=== PATIENT | female | born 1955 | race Caucasian/White ===

== ENCOUNTER 2016-07-18 08:43 | Inpatient (IN) | payer MEDICARE, OTHER ==
--- NOTE | 2016-07-18 08:56 | ED ---
General Adult HPI - General Chief complaint: Neuro Symptoms/Deficit Stated complaint: POSS CVA Time Seen by Provider: 07/18/16 08:55 Source: family, EMS, RN notes reviewed, old records reviewed Mode of arrival: EMS Limitations: language barrier, physical limitation - History of Present Illness Initial comments: This is a 60-year-old female the ER for reevaluation. The patient is coming in for evaluation of possible strokelike symptoms. and aphasia and facial drooping. Patient states symptoms began last night and progressed with shoe over progress when she woke up this morning. Patient does have a complex history with CVAs, most relating to speech and swallowing. The have gotten mostly better but this symptoms seem to be along the same lines. Patient unsure of her neurologist is, does take daily aspirin. No recent trauma, mild headache. Patient denies weakness of her hands or legs - Related Data Home Medications Medication Instructions Recorded Confirmed ARIPiprazole [Abilify] 2 mg PO HS 12/13/15 04/19/16 Ergocalciferol [Vitamin D2 50,000 unit PO TH 12/13/15 04/19/16 (RICKY)] FLUoxetine HCL [PROzac] 60 mg PO DAILY 12/13/15 04/19/16 Insulin Glargine [Lantus] 32 unit SQ HS 12/13/15 04/19/16 LORazepam [Ativan] 0.5 - 1 mg PO BID PRN 12/13/15 04/19/16 Omeprazole [PriLOSEC] 20 mg PO AC-BRKFST 12/13/15 04/19/16 Primidone [Mysoline] 50 mg PO TID 12/13/15 04/19/16 lamoTRIgine [LaMICtal] 150 mg PO BID 12/13/15 04/19/16 metFORMIN HCL [Glucophage] 850 mg PO BID 12/13/15 04/19/16 Previous Rx's Medication Instructions Recorded Atorvastatin [Lipitor] 80 mg PO DAILY #30 tab 12/17/15 Aspirin EC [Ecotrin Low Dose] 81 mg PO DAILY #30 tablet 04/22/16 Clopidogrel [Plavix] 75 mg PO DAILY #30 tab 04/22/16 Ezetimibe [Zetia] 10 mg PO DAILY #30 tab 04/22/16 Allergies Allergy/AdvReac Type Severity Reaction Status Date / Time No Known Allergies Allergy Verified 07/18/16 08:49 Review of Systems ROS Statement: Those systems with pertinent positive or pertinent negative responses have been documented in the HPI. ROS Other: All systems not noted in ROS Statement are negative. Past Medical History Past Medical History: Chest Pain / Angina, CVA/TIA, Diabetes Mellitus, Hyperlipidemia, Hypertension History of Any Multi-Drug Resistant Organisms: None Reported Past Surgical History: Adenoidectomy, Cholecystectomy, Tonsillectomy Additional Past Surgical History / Comment(s): hydrochephalus shunt, neck Past Anesthesia/Blood Transfusion Reactions: No Reported Reaction Past Psychological History: No Psychological Hx Reported Smoking Status: Current every day smoker Past Alcohol Use History: Occasional Past Drug Use History: None Reported - Past Family History Mother Family Medical History: Diabetes Mellitus, Myocardial Infarction ([place]) Father Family Medical History: Liver Disease, Myocardial Infarction ([place]) General Exam - General Exam Comments Initial Comments: NIH of 3 Limitations: language barrier, physical limitation Course Vital Signs 07/18/16 07/18/16 08:44 09:00 Temperature 97.6 F Pulse Rate 72 75 Respiratory 20 20 Rate Blood Pressure 124/71 123/67 O2 Sat by Pulse 92 L 98 Oximetry - Reevaluation(s) Reevaluation #1: 07/18/16 09:46 Patient is not a TPA candidate due to onset of symptoms being greater than 4 hours, EKG Findings - EKG Comments: EKG Findings:: KG shows normal sinus rhythm rate of 69, IL 158, QRS 64, QTc 435 Medical Decision Making - Medical Decision Making 60 female here for evaluation. Patient become presented here for evaluation of CVA, patient is having positive seat CVA with dysphasia and dysphagia, patient will be admitted for neurological evaluation - Lab Data Result diagrams: 07/18/16 09:00 07/18/16 09:00 Lab Results 07/18/16 07/18/16 07/18/16 Range/Units 09:00 09:00 09:00 WBC 6.3 (3.8-10.6) k/uL RBC 5.23 (3.80-5.40) m/uL Hgb 16.0 (11.4-16.0) gm/dL Hct 49.0 H (34.0-46.0) % MCV 93.7 (80.0-100.0) fL MCH 30.6 (25.0-35.0) pg MCHC 32.6 (31.0-37.0) g/dL RDW 14.2 (11.5-15.5) % Plt Count 217 (150-450) k/uL Neutrophils % 50 % Lymphocytes % 38 % Monocytes % 7 % Eosinophils % 2 % Basophils % 1 % Neutrophils # 3.2 (1.3-7.7) k/uL Lymphocytes # 2.4 (1.0-4.8) k/uL Monocytes # 0.4 (0-1.0) k/uL Eosinophils # 0.1 (0-0.7) k/uL Basophils # 0.1 (0-0.2) k/uL PT 10.7 (9.0-12.0) sec INR 1.1 (<1.1) APTT 22.5 (22.0-30.0) sec Sodium 138 (137-145) mmol/L Potassium 4.4 (3.5-5.1) mmol/L Chloride 101 (98-107) mmol/L Carbon Dioxide 26 (22-30) mmol/L Anion Gap 11 mmol/L BUN 15 (7-17) mg/dL Creatinine 0.84 (0.52-1.04) mg/dL Est GFR (MDRD) Af Amer >60 (>60 ml/min/1.73 sqM) Est GFR (MDRD) Non-Af >60 (>60 ml/min/1.73 sqM) Glucose 393 H (74-99) mg/dL Calcium 9.5 (8.4-10.2) mg/dL Phosphorus 4.1 (2.5-4.5) mg/dL Magnesium 1.6 (1.6-2.3) mg/dL Total Bilirubin 0.9 (0.2-1.3) mg/dL AST 16 (14-36) U/L ALT 51 (9-52) U/L Alkaline Phosphatase 110 (38-126) U/L Total Protein 6.5 (6.3-8.2) g/dL Albumin 3.8 (3.5-5.0) g/dL - Radiology Data Radiology results: report reviewed (CT brain negative for acute disease), image reviewed Disposition Clinical Impression: Cerebrovascular accident, Expressive aphasia, Dysphagia Disposition: ADMITTED IP TO THIS [facility] Condition: Fair Referrals: Laming,Lena, MD [Primary Care Provider] - 1-2 days
[2016-07-18 09:23] LABS: Basophils # (A) 0.1 k/uL (0-0.2); Basophils % (A) 1 %; CH 31.4; CHCM 33.7; Eosinophils # (A) 0.1 k/uL (0-0.7); Eosinophils % (A) 2 %; HDW 2.55; Luc # (Auto) 0.11; Luc % (Auto) 2; Lymphocytes # (A) 2.4 k/uL (1.0-4.8); Lymphocytes % (A) 38 %; MCH 30.6 pg (25.0-35.0); MCHC 32.6 g/dL (31.0-37.0); MCV 93.7 fL (80.0-100.0); Mean Platelet Volume 8.5; Monocytes # (A) 0.4 k/uL (0-1.0); Monocytes % (A) 7 %; Neutrophils # (A) 3.2 k/uL (1.3-7.7); Neutrophils % (A) 50 %; RBC 5.23 m/uL (3.80-5.40); RDW 14.2 % (11.5-15.5); WBC 6.3 k/uL (3.8-10.6); WBC (Perox) 6.11
--- NOTE | 2016-07-18 09:29 | CT ---
EXAMINATION TYPE: CT brain wo con DATE OF EXAM: 07/18/2016 9:17 AM COMPARISON: Prior CT brain April HISTORY: Weakness and slurred speech. CT DLP: 978.20 mGycm Automated exposure control for dose reduction was used. FINDINGS: No significant interval change. There is no hemorrhage or hydrocephalus. Atheromatous changes present within the internal carotid arteries. Ventriculoperitoneal shunt tubing is stable. Periventricular w jaswant matter demyelination changes are again noted. Craniotomy present as on prior exam for the shunt tubing. Mild inflammatory change present in the ethmoid air cells, sphenoid, maxillary sinus. Foreign body noted surface of the right orbit as on prior exam. IMPRESSION: No acute intracranial hemorrhage, mass effect, or midline shift is seen. Additional findings above.
[2016-07-18 09:32] LABS: INR 1.1 (<1.1); Partial Thromboplastin Time 22.5 sec (22.0-30.0); Prothrombin Time 10.7 sec (9.0-12.0)
[2016-07-18 09:40] LABS: ALT 51 U/L (9-52); AST 16 U/L (14-36); Alkaline Phosphatase 110 U/L (38-126); Anion Gap 11 mmol/L; Blood Urea Nitrogen 15 mg/dL (7-17); Calcium 9.5 mg/dL (8.4-10.2); Carbon Dioxide 26 mmol/L (22-30); Chloride 101 mmol/L (98-107); Glucose 393 mg/dL (74-99); Magnesium 1.6 mg/dL (1.6-2.3); Non-African American GFR(MDRD) >60 (>60 ml/min/1.73 sqM); Phosphorous 4.1 mg/dL (2.5-4.5); Potassium 4.4 mmol/L (3.5-5.1); Sodium 138 mmol/L (137-145); Total Bilirubin 0.9 mg/dL (0.2-1.3); Total Protein 6.5 g/dL (6.3-8.2)
[2016-07-18] MEDS ORDERED: MORPHINE SULFATE 4 MG/ML SYRINGE IVP STA (09:45)
[2016-07-18 09:46] LABS: Creatine Kinase 33 U/L (30-135)
[2016-07-18] MEDS ORDERED: ASPIRIN 325 MG TAB PO STA (09:47)
[2016-07-18] MEDS ORDERED: SODIUM CHLORIDE 0.9% 1,000 ML IV STA (09:49)
[2016-07-18] MEDS ORDERED: SODIUM CHLORIDE 0.9% 500 ML IV STA (09:49)
[2016-07-18] MEDS ORDERED: INSULIN REGULAR 100 UNIT/ML VIAL IV ONE (09:49)
[2016-07-18] MEDS ORDERED: INSULIN REGULAR 100 UNIT/ML VIAL SQ ONE (09:49)
[2016-07-18 09:59] LABS: Creatine Kinase MB 0.4 ng/mL (0.0-2.4); Troponin I <0.012 ng/mL (0.000-0.034)
[2016-07-18] MEDS ORDERED: ASPIRIN 300 MG SUPP RECTAL STA (10:31)
[2016-07-18 15:04] LABS: Glucose,Whole Blood 346 mg/dL (75-99)
[2016-07-18] MEDS ORDERED: Magnesium Replacement Protocol 1 EACH MISC MISCELLANE PRN ×2 (15:52→17:57)
[2016-07-18] MEDS ORDERED: Potassium Replacement Protocol 1 EACH MISC MISCELLANE PRN (15:52)
[2016-07-18] MEDS ORDERED: ONDANSETRON 4 MG/2 ML VIAL IVP PRN (15:53)
--- NOTE | 2016-07-18 16:01 | P.HPIM ---
History of Present Illness H&P Date: 07/18/16 Chief Complaint: Slurred speech This is a 60-year-old female with past medical history noted below significant for history of BUSINESS MAIL ENTRY CLERK shunt placement in 2004, prior CVA with residual left-sided weakness, and bipolar disorder who presented to the emergency room brought by EMS for difficulty with her speech and her being unable to articulate words. Patient is a very poor historian and most of the history was obtained by her daughter at the bedside. Her daughter said that she called her this morning on the phone and patient was unable to respond promptly and her speech appeared garbled. Her daughter called her to go check on her and he called EMS and brought her to the emergency room. Patient said that her symptoms started yesterday but she did not seek medical attention. She denies any headache or visual change. She was not very cooperative with my exam. Her neurologic exam appeared normal involving cranial nerve, 55 out of 5 strength on the right side 3-4 out of 5 strength on the left throughout. Patient is known to have left- sided weakness which is chronic for several years. Computed tomography scan of the brain in the emergency room showed no acute intracranial findings. Patient was admitted for the same in April and underwent a extensive workup that was unremarkable. She was unable to get an MRI as her BUSINESS MAIL ENTRY CLERK shunt information is not available. Review of Systems Review of system: 14 points review of systems were obtained and were negative except to what were mentioned in the HPI. Past Medical History Past Medical History: Chest Pain / Angina, CVA/TIA, Diabetes Mellitus, GERD/ Reflux, Hyperlipidemia, Hypertension Additional Past Medical History / Comment(s): CVA's x 2 with speech/swallow difficulties and R sided weakness, IDDM type II, hydrocephalus and had shunt placed 1999 at [place] in [facility]. History of Any Multi-Drug Resistant Organisms: None Reported Past Surgical History: Adenoidectomy, Cholecystectomy, Tonsillectomy Additional Past Surgical History / Comment(s): 1999 hydrochephalus shunt, cervical surgery. Past Anesthesia/Blood Transfusion Reactions: No Reported Reaction Past Psychological History: Anxiety, Bipolar, Depression Additional Psychological History / Comment(s): Pt resides alone. She uses a cane to ambulate. She manages her own medication. She no longer drives, eusebio or friend take her to appts. She had [facility] at discharge last admission-they are done seeing her. Smoking Status: Current every day smoker Past Alcohol Use History: Occasional Additional Past Alcohol Use History / Comment(s): Pt started smoking at age 20 or 21yrs. Past Drug Use History: None Reported - Past Family History Mother Family Medical History: Diabetes Mellitus, Myocardial Infarction ([place]) Father Family Medical History: Liver Disease, Myocardial Infarction ([place]) Medications and Allergies Home Medications Medication Instructions Recorded Confirmed Type ARIPiprazole [Abilify] 2 mg PO HS 12/13/15 07/18/16 History Ergocalciferol [Vitamin D2 50,000 unit PO TH 12/13/15 07/18/16 History (DRISDOL)] FLUoxetine HCL [PROzac] 60 mg PO DAILY 12/13/15 07/18/16 History Insulin Glargine [Lantus] 35 unit SQ HS 12/13/15 07/18/16 History LORazepam [Ativan] 0.5 - 1 mg PO BID PRN 12/13/15 07/18/16 History Omeprazole [PriLOSEC] 20 mg PO AC-BRKFST 12/13/15 07/18/16 History Primidone [Mysoline] 50 mg PO TID 12/13/15 07/18/16 History lamoTRIgine [LaMICtal] 150 mg PO BID 12/13/15 07/18/16 History metFORMIN HCL [Glucophage] 850 mg PO BID 12/13/15 07/18/16 History Aspirin 325 mg PO DAILY 07/18/16 07/18/16 History Atenolol 25 mg PO QAM 07/18/16 07/18/16 History Lisinopril-Hctz 20-12.5 mg 1 tab PO DAILY 07/18/16 07/18/16 History [Zestoretic 20-12.5] Allergies Allergy/AdvReac Type Severity Reaction Status Date / Time No Known Allergies Allergy Verified 07/18/16 08:49 Physical Exam Vitals: Vital Signs Pulse BP Pulse Ox 07/18/16 13:02 66 101/61 93 L 07/18/16 12:32 68 110/57 93 L 07/18/16 12:00 66 107/56 07/18/16 11:30 68 107/58 95 07/18/16 11:00 70 103/67 96 07/18/16 10:30 71 119/60 93 L 07/18/16 10:00 68 111/76 92 L General: The patient is awake and alert, in no distress Eye: there is normal conjunctiva bilaterally. Neck: The neck is supple, there is no JVD. Cardiovascular: Normal S1-S2, no S3-S4, no murmurs. Respiratory: Lungs clear to auscultation bilaterally Gastrointestinal: Abdomen is soft, nontender Musculoskeletal: There is no pedal edema. Neurological:. As noted in HPI Skin: Skin is warm and dry Results CBC & Chem 7: 07/18/16 09:00 07/18/16 09:00 Thrombosis Risk Factor Assmnt - Choose All That Apply Any of the Below Risk Factors Present?: Yes Each Factor Represents 1 point: Obesity (BMI >25) Other Risk Factors: No Other congenital or acquired thrombophilia - If yes, enter type in comment: No Each Risk Factor Represents 5 Points: Stroke (< 1 month) Thrombosis Risk Factor Assessment Total Risk Factor Score: 6 Thrombosis Risk Factor Assessment Level: High Risk Assessment and Plan Plan: 1. Slurred speech: Exact etiology unclear. May be psychogenic? Computed tomography scan of the brain showed no acute intracranial findings. Patient had the carotid Doppler and echocardiogram in December 2015 with in normal range. Patient will be admitted to telemetry floor. Neurology consulted. She is on dual antiplatelet therapy chronically at home with questionable compliance 2. History of hydrocephalus status post BUSINESS MAIL ENTRY CLERK shunt placement in year 1999 3. Type 2 diabetes mellitus: Not well controlled, suspect noncompliance. I would check A1c 4. Mixed hyperlipidemia I would check fasting lipid profile 5. Tobacco abuse 6. DVT prophylaxis
[2016-07-18] MEDS: SODIUM CHLORIDE 0.9% 1,000 ML IV SCH ×2 (16:07→20:42)
[2016-07-18 16:18] LABS: Cholesterol 311 mg/dL (<200); HDL Cholesterol 39 mg/dL (40-60); Triglycerides 380 mg/dL (<150)
[2016-07-18 16:45] LABS: Glucose,Whole Blood 166 mg/dL (75-99)
[2016-07-18] MEDS: INSULIN LISPRO (humaLOG) 300 UNIT/3 ML VIAL SQ SCH ×2 (17:23→20:54)
[2016-07-18] MEDS: PRIMIDONE 50 MG TAB PO SCH ×2 (17:23→19:41)
[2016-07-18 17:27] LABS: Appearance,Urine Clear (Clear); Bilirubin,Urine Negative (Negative); Glucose,Urine (UA) 4+ (Negative); Ketones,Urine Trace (Negative); Leukocyte Esterase,Urine Negative (Negative); Nitrite,Urine Negative (Negative); Protein,Urine Negative (Negative); Specific Gravity,Urine 1.026 (1.001-1.035); UA Billing (MACRO vs. MICRO) CHEM; Urobilinogen,Urine <2.0 mg/dL (<2.0)
[2016-07-18] MEDS: KETOROLAC 30 MG/ML 1 ML VIAL IVP PRN (18:07)
[2016-07-18] MEDS: MAGNESIUM SULFATE-D5W PMX 1 GM in DEXTROSE/WATER 1 100ML.BAG IVPB SCH ×2 (18:31→20:40)
[2016-07-18 18:32] LABS: Hemoglobin A1C 11.2 % (4.2-6.1)
[2016-07-18] MEDS: ARIPiprazole 2 MG TAB PO SCH (19:40)
[2016-07-18] MEDS: INSULIN GLARGINE 100 UNIT/ML 10 ML VIAL SQ SCH (19:40)
[2016-07-18] MEDS: lamoTRIgine 100 MG TAB PO SCH (19:40)
[2016-07-18] MEDS: metFORMIN 850 MG TAB PO SCH (19:41)
[2016-07-18] MEDS: HEPARIN SODIUM,PORCINE 5,000 UNIT/ML 1 ML VIAL SQ SCH (20:54)
[2016-07-18 20:55] LABS: Glucose,Whole Blood 155 mg/dL (75-99)
[2016-07-18] MEDS: ASPIRIN 300 MG SUPP RECTAL SCH (20:55)
[2016-07-18] MEDS ORDERED: FAMOTIDINE 20 MG/2 ML VIAL IV SCH (21:00)
[2016-07-18 21:07] LABS: Cholesterol 263 mg/dL (<200); HDL Cholesterol 36 mg/dL (40-60); Triglycerides 297 mg/dL (<150)
--- NOTE | 2016-07-18 22:57 | CONS ---
DATE OF CONSULTATION: 07/18/2016 CHIEF COMPLAINT: Stroke. HISTORY OF PRESENT ILLNESS: The patient is a pleasant 60-year-old, female who is being evaluated by the neurology service per the request of Dr. Israel for the above-mentioned complaints. The patient was brought into [facility] emergency room early this morning with complaints of slurred speech and swallowing difficulties. His symptoms began yesterday evening, but the patient did not seek any medical attention. Other than slurred speech, the family noticed some facial drooping on the left side. The patient reports having choking spells whenever she tried to drink water. The patient does have previous history of strokes according to the family and does take Plavix daily at home. A bedside swallow evaluation was done in the emergency room and the patient did fail this. She is currently n.p.o. and speech therapy has been consulted. The patient also has history of hydrocephalus and has a MANAGER OF SOFTWARE DEVELOPMENT shunt which was placed in 1999. A CT scan of the brain was done on this admission, which showed small vessel ischemic changes along with craniotomy changes. A MANAGER OF SOFTWARE DEVELOPMENT shunt was visualized. No hydrocephalus was seen. Her CBC, INR and cardiac enzymes were normal. Her comprehensive metabolic profile was normal except for significant hyperglycemia at 393. At the time of my evaluation, the patient is lying in her bed and appears to be in no acute distress. She is still having significant dysarthria and has a mild left facial droop. She denies any lateralizing numbness or weakness in her extremities. She is complaining of a mild headache that she rates at 4/10 in intensity. She denies any recent trauma. She has been complaining of some tremors in the upper extremities. According to the family, this started several months ago and she has not been worked up for this. PAST MEDICAL HISTORY: Hydrocephalus, history of strokes and transient ischemic attacks, angina, diabetes, gastroesophageal reflux disease, hypertension, dyslipidemia, history of adenoidectomy, cholecystectomy, tonsillectomy. The patient also has history of bipolar disorder, depression, and anxiety disorder. SOCIAL HISTORY: The patient is a current every day smoker. She occasionally drinks alcohol. She denies any drug use. FAMILY HISTORY: Positive for diabetes, heart disease, liver disease. HOME MEDICATIONS: Reviewed in the chart. ALLERGIES: No known drug allergies. REVIEW OF SYSTEMS: CONSTITUTIONAL: Negative. EYES: Negative. ENT: Negative. CARDIOVASCULAR: Negative. RESPIRATORY: Negative. NEUROLOGICAL: As mentioned above. GASTROINTESTINAL: Positive for occasional heartburn. GENITOURINARY: Negative. PSYCHIATRIC: As mentioned above. MUSCULOSKELETAL: Positive for occasional joint pain. ENDOCRINE: Positive for diabetes. Dermatological: Negative. PHYSICAL EXAM: Vital signs show a temperature of 97.6, pulse 68, respirations 18, blood pressure 111/76. GENERAL APPEARANCE: The patient is a well-developed female who appears to be older than her stated age. HEENT: Normocephalic, atraumatic, mild left facial droop is noticed. Extraocular muscle testing showed a significant reduction in upward gaze. Neck is supple with no masses felt. CARDIOVASCULAR: Regular rate and rhythm. ABDOMEN: Nontender, nondistended. EXTREMITIES: No edema or clubbing. NEUROLOGICAL EXAM: The patient is alert, aware, and oriented x3. Speech is dysarthric. Language testing is normal. Strength is 5-/5 in all 4 extremities. Sensory exam was normal to light touch in all 4 extremities. Mild cogwheel rigidity is noticed in bilateral upper extremities. Occasional resting tremor is noticed in the right upper extremity. Kbavxy-ywtz-kzohul testing showed no dysmetria. Cranial nerve testing showed an upward gaze palsy and to a mild left facial droop. No seizure-like activity is seen. IMPRESSION: 1. Acute ischemic stroke. 2. Dysarthria. 3. Dysphagia. 4. Cogwheel rigidity. 5. History of hydrocephalus with MANAGER OF SOFTWARE DEVELOPMENT shunt placement. 6. Uncontrolled diabetes. RECOMMENDATIONS: The patient does appear to have suffered an acute ischemic stroke likely affecting the right middle cerebral artery distribution. Posterior circulation stroke also within the differential given her dysarthria and dysphagia. Speech therapy has been consulted and I do recommend a barium swallow study. For now, I will start her on rectal aspirin 300 mg daily. I will order an MRI of the brain. I will also order an MRI of the neck to check for any structural abnormalities that could be causing her symptoms. Continue IV hydration as tolerated. I will order a fasting lipid panel, serum homocysteine level and EEG. As for her resting tremors, cogwheel rigidity, and upward gaze palsy, the patient will need further outpatient work-up for possible parkinsonism. She will be seen in the clinic after her discharge and a SPECT scan will be ordered at that time. Continue neuro checks. The patient was counseled on tobacco cessation. Continue heparin for DVT prophylaxis and Protonix for GI prophylaxis. I will continue to follow with you. Further recommendations to follow. Thank you for allowing me to participate in the care of your patient. If you have any questions, please free to contact me.
[2016-07-19] MEDS: PANTOPRAZOLE 40 MG TABLET PO SCH (03:16)
[2016-07-19] MEDS: SODIUM CHLORIDE 0.9% 1,000 ML IV SCH ×2 (04:54→16:09)
[2016-07-19 06:10] LABS: Glucose,Whole Blood 229 mg/dL (75-99)
[2016-07-19] MEDS: INSULIN LISPRO (humaLOG) 300 UNIT/3 ML VIAL SQ SCH ×6 (06:29→21:18)
[2016-07-19 06:46] LABS: Basophils % (A) 1 %; CH 30.9; CHCM 32.4; Eosinophils # (A) 0.1 k/uL (0-0.7); Eosinophils % (A) 2 %; HDW 2.46; HGB 14.2 gm/dL (11.4-16.0); Luc # (Auto) 0.13; Luc % (Auto) 2; Lymphocytes % (A) 29 %; MCH 30.9 pg (25.0-35.0); MCHC 32.3 g/dL (31.0-37.0); MCV 95.8 fL (80.0-100.0); Mean Platelet Volume 7.8; Monocytes # (A) 0.3 k/uL (0-1.0); Monocytes % (A) 5 %; Neutrophils # (A) 4.4 k/uL (1.3-7.7); Neutrophils % (A) 63 %; RBC 4.59 m/uL (3.80-5.40); RDW 13.9 % (11.5-15.5); WBC (Perox) 7.58
[2016-07-19 07:10] LABS: ALT 45 U/L (9-52); AST 18 U/L (14-36); Alkaline Phosphatase 93 U/L (38-126); Anion Gap 6 mmol/L; Blood Urea Nitrogen 19 mg/dL (7-17); Calcium 8.4 mg/dL (8.4-10.2); Carbon Dioxide 25 mmol/L (22-30); Chloride 107 mmol/L (98-107); Glucose 238 mg/dL (74-99); Non-African American GFR(MDRD) >60 (>60 ml/min/1.73 sqM); Potassium 4.2 mmol/L (3.5-5.1); Sodium 138 mmol/L (137-145); Total Bilirubin 0.8 mg/dL (0.2-1.3); Total Protein 5.2 g/dL (6.3-8.2)
[2016-07-19] MEDS: ATENOLOL 25 MG TAB PO SCH (08:18)
[2016-07-19] MEDS: CLOPIDOGREL 75 MG TAB PO SCH (08:18)
[2016-07-19] MEDS: PRIMIDONE 50 MG TAB PO SCH ×3 (08:18→21:20)
[2016-07-19] MEDS: FLUoxetine HCL 20 MG CAP PO SCH (08:18)
[2016-07-19] MEDS: metFORMIN 850 MG TAB PO SCH (08:18)
[2016-07-19] MEDS: LISINOPRIL-HCTZ 20-12.5 MG 1 EACH TAB PO SCH (08:18)
[2016-07-19] MEDS: lamoTRIgine 100 MG TAB PO SCH ×2 (08:18→21:20)
[2016-07-19] MEDS: ATORVASTATIN 80 MG TAB PO SCH (08:18)
[2016-07-19] MEDS ORDERED: PNEUMOCOCCAL VACC-PNEUMOVAX 23 25 MCG/0.5 ML VIAL IM ONE (09:00)
[2016-07-19] MEDS ORDERED: INFLUENZA VACCINE (3YR+) 60 MCG/0.5 ML SYRINGE IM ONE (09:00)
[2016-07-19] MEDS ORDERED: ASPIRIN 325 MG TAB PO SCH ×2 (09:00)
[2016-07-19] MEDS: ASPIRIN 300 MG SUPP RECTAL SCH (10:19)
[2016-07-19] MEDS: HEPARIN SODIUM,PORCINE 5,000 UNIT/ML 1 ML VIAL SQ SCH ×2 (10:19→21:20)
[2016-07-19] MEDS: KETOROLAC 30 MG/ML 1 ML VIAL IVP PRN (10:56)
[2016-07-19] MEDS ORDERED: INSULIN GLARGINE 100 UNIT/ML 10 ML VIAL SQ STA (11:28)
[2016-07-19 11:57] LABS: Glucose,Whole Blood 193 mg/dL (75-99)
[2016-07-19] MEDS ORDERED: INSULIN LISPRO (humaLOG) 300 UNIT/3 ML VIAL SQ SCH (12:30)
--- NOTE | 2016-07-19 12:55 | P.PN ---
Subjective Her speech has improved today patient failed a bedside swallow evaluation this morning. She seems to be more alert and her speech is more clear to me today. Objective - Vital Signs Vital signs: Vital Signs Temp 99.3 F 07/19/16 07:36 Pulse 76 07/19/16 08:00 Resp 18 07/19/16 08:00 BP 124/66 07/19/16 07:36 Pulse Ox 95 07/19/16 07:36 Intake & Output 07/18/16 07/19/16 07/19/16 18:59 06:59 18:59 Intake Total 50 1800 0 Output Total 300 Balance 50 1500 0 Weight 80.6 kg Intake: IV 1800 Magnesium Sulfate-D5w Pmx 200 1 gm In Dextrose/Water 1 100ml.bag @ 100 mls/hr IVPB Q1H ZACKERY Rx#: [id number] Sodium Chloride 0.9% 1, 1600 000 ml @ 100 mls/hr IV . Q10H ZACKERY Rx#:[id number] Intake, IV Titration 50 Amount Sodium Chloride 0.9% 1, 50 000 ml @ 100 mls/hr IV . Q10H ZACKERY Rx#:[id number] Oral 0 Output: Urine 300 Other: Voiding Method Bedside Commode - Exam General: The patient is awake and alert, in no distress Eye: there is normal conjunctiva bilaterally. Neck: The neck is supple, there is no JVD. Cardiovascular: Normal S1-S2, no S3-S4, no murmurs. Respiratory: Lungs clear to auscultation bilaterally Gastrointestinal: Abdomen is soft, nontender Musculoskeletal: There is no pedal edema. Skin: Skin is warm and dry - Labs CBC & Chem 7: 07/19/16 06:16 07/19/16 06:16 Labs: Abnormal Lab Results - Last 24 Hours (Table) 07/18/16 07/18/16 07/18/16 Range/Units 16:43 17:10 20:44 BUN (7-17) mg/dL Glucose (74-99) mg/dL POC Glucose (mg/dL) 166 H (75-99) mg/dL Total Protein (6.3-8.2) g/dL Albumin (3.5-5.0) g/dL Triglycerides 297 H (<150) mg/dL Cholesterol 263 H (<200) mg/dL LDL Cholesterol, Calc 168 H (0-99) mg/dL HDL Cholesterol 36 L (40-60) mg/dL Urine Glucose (UA) 4+ H (Negative) Urine Ketones Trace H (Negative) 07/18/16 07/19/16 07/19/16 Range/Units 20:52 06:08 06:16 BUN 19 H (7-17) mg/dL Glucose 238 H (74-99) mg/dL POC Glucose (mg/dL) 155 H 229 H (75-99) mg/dL Total Protein 5.2 L (6.3-8.2) g/dL Albumin 3.0 L (3.5-5.0) g/dL Triglycerides (<150) mg/dL Cholesterol (<200) mg/dL LDL Cholesterol, Calc (0-99) mg/dL HDL Cholesterol (40-60) mg/dL Urine Glucose (UA) (Negative) Urine Ketones (Negative) 07/19/16 Range/Units 11:41 BUN (7-17) mg/dL Glucose (74-99) mg/dL POC Glucose (mg/dL) 193 H (75-99) mg/dL Total Protein (6.3-8.2) g/dL Albumin (3.5-5.0) g/dL Triglycerides (<150) mg/dL Cholesterol (<200) mg/dL LDL Cholesterol, Calc (0-99) mg/dL HDL Cholesterol (40-60) mg/dL Urine Glucose (UA) (Negative) Urine Ketones (Negative) Microbiology - Last 24 Hours (Table) 07/18/16 17:10 Urine Culture - Preliminary Urine,Voided Assessment and Plan Plan: 1. Slurred speech: With suspected acute ischemic stroke involving the right MCA as suggested by neurology. Computed tomography scan of the brain showed no acute intracranial findings. Patient had the carotid Doppler and echocardiogram in December 2015 with in normal range. She is on dual antiplatelet therapy chronically at home. Awaiting speech pathology reevaluation. Patient is unable to get an MRI secondary to history of PARTS CATALOGER shunt with unclear details about her shunt. 2. History of hydrocephalus status post PARTS CATALOGER shunt placement in year 1999 3. Type 2 diabetes mellitus: Not well controlled, A1c greater than 11. Patient reports good compliance with her Lantus at home. I would add short- acting insulin to her regimen. 4. Mixed hyperlipidemia not controlled, total cholesterol 263, LDL 168. Patient is on Lipitor 80 at home and reported good compliance. I would add fenofibrate to her regimen. 5. Tobacco abuse 6. DVT prophylaxis Today, I discussed with the patient and her daughter at bedside medication compliance. Patient insists that she is compliant with all her medication. I told her that we will have to adjust her regimen accordingly. Awaiting speech pathology reevaluation. Continue IV fluid hydration. Repeat lab work in the morning. Appreciate neurology recommendations. Patient is unable to get an MRI secondary to prior PARTS CATALOGER shunt placement.
--- NOTE | 2016-07-19 14:48 | P.PN ---
Subjective Principal diagnosis: Patient is a pleasant 60-year-old female who is being followed by the neurology service for stroke. Patient does have history of stroke and was taking Plavix in the home setting. Patient had episode of slurred speech and swallowing difficulties at home but did not seek medical attention. Symptoms began to worsen and patient came to [facility] for further evaluation. Patient had a bedside swallow in the emergency room which she failed. Patient is currently nothing by mouth. Patient does have history of hydrocephalus with a MEMBERSHIP SOLICITOR shunt which was placed in 1999. As you recall, computed tomography scan of the brain showed small vessel ischemic changes along with craniotomy changes. MEMBERSHIP SOLICITOR shunt was visualized. At the time of my evaluation, patient is resting comfortably in bed and appears to be in no acute distress. Patient is still having dysarthria and a mild left facial droop. No lateralizing weakness or numbness is noted. Objective - Vital Signs Vital signs: Vital Signs Temp 97.3 F L 07/19/16 12:00 Pulse 74 07/19/16 12:00 Resp 18 07/19/16 12:00 BP 112/72 07/19/16 12:00 Pulse Ox 95 07/19/16 12:00 Intake & Output 07/18/16 07/19/16 07/19/16 18:59 06:59 18:59 Intake Total 50 1800 1000 Output Total 300 Balance 50 1500 1000 Weight 80.6 kg 80.6 kg Intake: IV 1800 1000 Magnesium Sulfate-D5w Pmx 200 1 gm In Dextrose/Water 1 100ml.bag @ 100 mls/hr IVPB Q1H [facility] Rx#: [id number] Sodium Chloride 0.9% 1, 1600 1000 000 ml @ 100 mls/hr IV . Q10H [facility] Rx#:[id number] Intake, IV Titration 50 Amount Sodium Chloride 0.9% 1, 50 000 ml @ 100 mls/hr IV . Q10H [facility] Rx#:[id number] Oral 0 Output: Urine 300 Other: Voiding Method Bedside Commode - Exam PHYSICAL EXAM: GENERAL APPEARANCE: Patient is a well-developed, female who appears to be in no acute distress. HEENT: Normocephalic, atraumatic, left facial droop is noted. Neck is supple with no masses felt. CARDIOVASCULAR: Regular rate and rhythm. ABDOMEN: Nontender, nondistended. EXTREMITIES: Show no edema or clubbing. NEUROLOGICAL EXAM: Patient is awake, alert, and oriented 3. Speech is dysarthric. Language testing is normal. Strength is 5-/5 in all 4 extremities. Mild cogwheel rigidity noted to upper extremities. Sensory exam is normal to light touch in all 4 extremities. Mild left facial droop is noted on cranial nerve testing. No seizure-like activity is seen. - Labs CBC & Chem 7: 07/19/16 06:16 07/19/16 06:16 Labs: Abnormal Lab Results - Last 24 Hours (Table) 07/18/16 07/18/16 07/18/16 Range/Units 16:43 17:10 20:44 BUN (7-17) mg/dL Glucose (74-99) mg/dL POC Glucose (mg/dL) 166 H (75-99) mg/dL Total Protein (6.3-8.2) g/dL Albumin (3.5-5.0) g/dL Triglycerides 297 H (<150) mg/dL Cholesterol 263 H (<200) mg/dL LDL Cholesterol, Calc 168 H (0-99) mg/dL HDL Cholesterol 36 L (40-60) mg/dL Urine Glucose (UA) 4+ H (Negative) Urine Ketones Trace H (Negative) 07/18/16 07/19/16 07/19/16 Range/Units 20:52 06:08 06:16 BUN 19 H (7-17) mg/dL Glucose 238 H (74-99) mg/dL POC Glucose (mg/dL) 155 H 229 H (75-99) mg/dL Total Protein 5.2 L (6.3-8.2) g/dL Albumin 3.0 L (3.5-5.0) g/dL Triglycerides (<150) mg/dL Cholesterol (<200) mg/dL LDL Cholesterol, Calc (0-99) mg/dL HDL Cholesterol (40-60) mg/dL Urine Glucose (UA) (Negative) Urine Ketones (Negative) 07/19/16 Range/Units 11:41 BUN (7-17) mg/dL Glucose (74-99) mg/dL POC Glucose (mg/dL) 193 H (75-99) mg/dL Total Protein (6.3-8.2) g/dL Albumin (3.5-5.0) g/dL Triglycerides (<150) mg/dL Cholesterol (<200) mg/dL LDL Cholesterol, Calc (0-99) mg/dL HDL Cholesterol (40-60) mg/dL Urine Glucose (UA) (Negative) Urine Ketones (Negative) Microbiology - Last 24 Hours (Table) 07/18/16 17:10 Urine Culture - Preliminary Urine,Voided Assessment and Plan Plan: Impression: 1. Acute ischemic stroke, most likely right MCA distribution 2. Dysarthria 3. Dysphagia 4. Cogwheel rigidity 5. History of hydrocephalus with MEMBERSHIP SOLICITOR shunt placement in 1999 6. Uncontrolled diabetes mellitus Recommendations: Patient does appear to have suffered an acute ischemic stroke. Patient continues with dysarthria and dysphagia. Speech therapy is consulted and is following. Patient continues to be nothing by mouth for now. Continue rectal aspirin 300 mg daily. As you recall patient had a carotid Doppler and echocardiogram done in December 2015 which reportedly was within normal range. Fasting lipid panel was elevated and I recommend continuing high-dose Lipitor. Homocystine level was normal at 8.6. EEG was done and results are pending. As previously mentioned, patient can be worked up as an outpatient for possible parkinsonism. She'll be seen in the clinic after discharge and a SPECT scan will be ordered at that time. Continue neurological checks. Continue current diabetic management. I will continue to follow with you. Further recommendations to follow. I performed an examination of the patient and discussed the management with the SOCIAL MEDIA INTERN. I have reviewed the SOCIAL MEDIA INTERN notes and agree with the findings and plan of care.
[2016-07-19 17:41] LABS: Glucose,Whole Blood 166 mg/dL (75-99)
[2016-07-19] MEDS: HYDROcodone/APAP 5-325MG 1 EACH TAB PO PRN (17:46)
[2016-07-19 20:58] LABS: Glucose,Whole Blood 114 mg/dL (75-99)
[2016-07-19] MEDS ORDERED: INSULIN GLARGINE 100 UNIT/ML 10 ML VIAL SQ SCH (21:00)
[2016-07-19] MEDS: ARIPiprazole 2 MG TAB PO SCH (21:20)
--- NOTE | 2016-07-19 22:03 | EEG ---
DATE OF SERVICE: 07/19/2016 INDICATIONS FOR EXAMINATION: Stroke. AGE: 60Y DESCRIPTION OF THE PROCEDURE: This EEG was performed using a 21-channel digital electroencephalograph, following the international 10 to 20 system. DESCRIPTION OF THE RECORDING: From the beginning of the tracing, and with the patient's eyes closed, the background rhythm was mostly consisting of 8 Hz alpha frequency in the posterior occipital leads. No obvious asymmetry is seen. Photic stimulation was performed with a minimal driving response seen. No pathological waves were elicited. Hyperventilation was not performed. Occasional movement artifacts are seen. Later in the tracing, the patient does reach stage II of sleep and occasional sleep spindles are seen. No epileptiform discharges were seen. Her EKG lead showed a regular rate and rhythm. INTERPRETATION: This asleep and awake EEG can be considered within normal limits. There was no asymmetry seen. No epileptiform discharges were noticed. The absence of epileptiform discharges does not rule out the diagnosis of epilepsy; therefore, clinical correlation is recommended.
[2016-07-20] MEDS: SODIUM CHLORIDE 0.9% 1,000 ML IV SCH (02:26)
[2016-07-20 06:06] LABS: Glucose,Whole Blood 154 mg/dL (75-99)
[2016-07-20 06:29] LABS: Basophils % (A) 1 %; CHCM 33.1; Eosinophils # (A) 0.1 k/uL (0-0.7); Eosinophils % (A) 2 %; HCT 42.8 % (34.0-46.0); HDW 2.54; Luc % (Auto) 2; Lymphocytes # (A) 2.5 k/uL (1.0-4.8); Lymphocytes % (A) 43 %; MCH 30.8 pg (25.0-35.0); MCHC 32.7 g/dL (31.0-37.0); MCV 94.1 fL (80.0-100.0); Mean Platelet Volume 8.3; Monocytes # (A) 0.3 k/uL (0-1.0); Monocytes % (A) 6 %; Neutrophils # (A) 2.7 k/uL (1.3-7.7); Neutrophils % (A) 47 %; RBC 4.55 m/uL (3.80-5.40); RDW 13.8 % (11.5-15.5); WBC 5.8 k/uL (3.8-10.6); WBC (Perox) 5.77
[2016-07-20] MEDS: PANTOPRAZOLE 40 MG TABLET PO SCH (06:41)
[2016-07-20] MEDS: KETOROLAC 30 MG/ML 1 ML VIAL IVP PRN (06:46)
[2016-07-20 06:48] LABS: ALT 38 U/L (9-52); AST 23 U/L (14-36); Alkaline Phosphatase 76 U/L (38-126); Anion Gap 9 mmol/L; Blood Urea Nitrogen 22 mg/dL (7-17); Calcium 8.7 mg/dL (8.4-10.2); Carbon Dioxide 23 mmol/L (22-30); Chloride 112 mmol/L (98-107); Glucose 150 mg/dL (74-99); Magnesium 1.8 mg/dL (1.6-2.3); Non-African American GFR(MDRD) >60 (>60 ml/min/1.73 sqM); Sodium 144 mmol/L (137-145); Total Bilirubin 0.8 mg/dL (0.2-1.3); Total Protein 5.3 g/dL (6.3-8.2)
[2016-07-20 06:49] LABS: Potassium 4.7 mmol/L (3.5-5.1)
[2016-07-20] MEDS: INSULIN LISPRO (humaLOG) 300 UNIT/3 ML VIAL SQ SCH ×8 (07:11→23:01)
[2016-07-20] MEDS: lamoTRIgine 100 MG TAB PO SCH ×2 (08:30→23:00)
[2016-07-20] MEDS: LISINOPRIL-HCTZ 20-12.5 MG 1 EACH TAB PO SCH (08:30)
[2016-07-20] MEDS: HEPARIN SODIUM,PORCINE 5,000 UNIT/ML 1 ML VIAL SQ SCH ×2 (08:30→23:00)
[2016-07-20] MEDS: FLUoxetine HCL 20 MG CAP PO SCH (08:30)
[2016-07-20] MEDS: CLOPIDOGREL 75 MG TAB PO SCH (08:31)
[2016-07-20] MEDS: FENOFIBRATE 160 MG TAB PO SCH (08:31)
[2016-07-20] MEDS: ATENOLOL 25 MG TAB PO SCH (08:31)
[2016-07-20] MEDS: ATORVASTATIN 80 MG TAB PO SCH (08:31)
[2016-07-20] MEDS: PRIMIDONE 50 MG TAB PO SCH ×3 (08:31→23:00)
[2016-07-20] MEDS ORDERED: INSULIN GLARGINE 100 UNIT/ML 10 ML VIAL SQ STA (10:45)
[2016-07-20] MEDS: ASPIRIN 300 MG SUPP RECTAL SCH (11:33)
[2016-07-20 12:11] LABS: Glucose,Whole Blood 216 mg/dL (75-99)
--- NOTE | 2016-07-20 12:29 | P.PN ---
Subjective No significant improvement since yesterday. Patient was still having difficulty swallowing this morning. Objective - Vital Signs Vital signs: Vital Signs Temp 98.6 F 07/20/16 12:06 Pulse 62 07/20/16 12:06 Resp 16 07/20/16 12:06 BP 115/66 07/20/16 12:06 Pulse Ox 98 07/20/16 08:00 Intake & Output 07/19/16 07/20/16 07/20/16 18:59 06:59 18:59 Intake Total 1050 1600 Balance 1050 1600 Weight 80.6 kg 81 kg Intake: IV 1000 1600 Sodium Chloride 0.9% 1, 1000 1600 000 ml @ 100 mls/hr IV . Q10H [facility] Rx#:[id number] Oral 50 Other: Voiding Method Bedside Commode Bedside Commode - Exam General: The patient is awake and alert, in no distress Eye: there is normal conjunctiva bilaterally. Neck: The neck is supple, there is no JVD. Cardiovascular: Normal S1-S2, no S3-S4, no murmurs. Respiratory: Lungs clear to auscultation bilaterally Gastrointestinal: Abdomen is soft, nontender Musculoskeletal: There is no pedal edema. Skin: Skin is warm and dry - Labs CBC & Chem 7: 07/20/16 06:05 07/20/16 06:05 Labs: Abnormal Lab Results - Last 24 Hours (Table) 07/19/16 07/19/16 07/20/16 Range/Units 16:46 20:55 06:05 Chloride 112 H (98-107) mmol/L BUN 22 H (7-17) mg/dL Glucose 150 H (74-99) mg/dL POC Glucose (mg/dL) 166 H 114 H (75-99) mg/dL Total Protein 5.3 L (6.3-8.2) g/dL Albumin 2.9 L (3.5-5.0) g/dL 07/20/16 07/20/16 Range/Units 06:05 11:51 Chloride (98-107) mmol/L BUN (7-17) mg/dL Glucose (74-99) mg/dL POC Glucose (mg/dL) 154 H 216 H (75-99) mg/dL Total Protein (6.3-8.2) g/dL Albumin (3.5-5.0) g/dL Microbiology - Last 24 Hours (Table) 07/18/16 17:10 Urine Culture - Final Urine,Voided Assessment and Plan Plan: 1. Slurred speech: With suspected acute ischemic stroke involving the right MCA. Computed tomography scan of the brain showed no acute intracranial findings. Patient had the carotid Doppler and echocardiogram in December 2015 with in normal range. She is on dual antiplatelet therapy chronically at home. A copy of her MRI of the brain done in December 2015 was obtained showing prior stroke now awaiting neurology evaluation. We'll consider repeat MRI of the brain during this admission. 2. History of hydrocephalus status post WAREHOUSE SHIPPING CLERK shunt placement in year 1999 3. Type 2 diabetes mellitus: Not well controlled, A1c greater than 11. Patient reports good compliance with her Lantus at home. I would add short- acting insulin to her regimen. 4. Mixed hyperlipidemia not controlled, total cholesterol 263, LDL 168. Patient is on Lipitor 80 at home and reported good compliance. I would add fenofibrate to her regimen. 5. Tobacco abuse 6. DVT prophylaxis Plan for today: Awaiting barium swallow study. Awaiting neurology reevaluation. Consider repeat MRI of the brain. Continue dual antiplatelet therapy.
--- NOTE | 2016-07-20 13:35 | P.PN ---
Subjective Principal diagnosis: Patient is a pleasant 60-year-old female who is being followed by the neurology service for stroke. Patient does have history of stroke and was taking Plavix in the home setting. Patient had episode of slurred speech and swallowing difficulties at home but did not seek medical attention. Symptoms began to worsen and patient came to [facility] for further evaluation. Patient had a bedside swallow in the emergency room which she failed. Patient is currently nothing by mouth. Patient does have history of hydrocephalus with a PSYCHOLOGICAL OPERATIONS OFFICER shunt which was placed in 1999 at [facility] in [place]. As you recall, computed tomography scan of the brain showed small vessel ischemic changes along with craniotomy changes. PSYCHOLOGICAL OPERATIONS OFFICER shunt was visualized. At the time of my evaluation, patient is resting comfortably in bed and appears to be in no acute distress. Patient is still having dysarthria and a mild left facial droop. No lateralizing weakness or numbness is noted. Objective - Vital Signs Vital signs: Vital Signs Temp 98.6 F 07/20/16 12:06 Pulse 62 07/20/16 12:06 Resp 16 07/20/16 12:06 BP 115/66 07/20/16 12:06 Pulse Ox 98 07/20/16 08:00 Intake & Output 07/19/16 07/20/16 07/20/16 18:59 06:59 18:59 Intake Total 1050 1600 Balance 1050 1600 Weight 80.6 kg 81 kg Intake: IV 1000 1600 Sodium Chloride 0.9% 1, 1000 1600 000 ml @ 100 mls/hr IV . Q10H [facility] Rx#:[id number] Oral 50 Other: Voiding Method Bedside Commode Bedside Commode - Exam PHYSICAL EXAM: GENERAL APPEARANCE: Patient is a well-developed, female who appears to be in no acute distress. HEENT: Normocephalic, atraumatic, left facial droop is noted. Neck is supple with no masses felt. CARDIOVASCULAR: Regular rate and rhythm. ABDOMEN: Nontender, nondistended. EXTREMITIES: Show no edema or clubbing. NEUROLOGICAL EXAM: Patient is awake, alert, and oriented 3. Speech is dysarthric. Language testing is normal. Strength is full in all 4 extremities. Mild cogwheel rigidity noted to upper extremities. Sensory exam is normal to light touch in all 4 extremities. Mild left facial droop is noted on cranial nerve testing. No tremors or seizure-like activity is seen. - Labs CBC & Chem 7: 07/20/16 06:05 07/20/16 06:05 Labs: Abnormal Lab Results - Last 24 Hours (Table) 07/19/16 07/19/16 07/20/16 Range/Units 16:46 20:55 06:05 Chloride 112 H (98-107) mmol/L BUN 22 H (7-17) mg/dL Glucose 150 H (74-99) mg/dL POC Glucose (mg/dL) 166 H 114 H (75-99) mg/dL Total Protein 5.3 L (6.3-8.2) g/dL Albumin 2.9 L (3.5-5.0) g/dL 07/20/16 07/20/16 Range/Units 06:05 11:51 Chloride (98-107) mmol/L BUN (7-17) mg/dL Glucose (74-99) mg/dL POC Glucose (mg/dL) 154 H 216 H (75-99) mg/dL Total Protein (6.3-8.2) g/dL Albumin (3.5-5.0) g/dL Microbiology - Last 24 Hours (Table) 07/18/16 17:10 Urine Culture - Final Urine,Voided Assessment and Plan Plan: Impression: 1. Acute ischemic stroke, most likely right MCA distribution 2. Dysarthria 3. Dysphagia 4. Cogwheel rigidity 5. History of hydrocephalus with PSYCHOLOGICAL OPERATIONS OFFICER shunt placement in 1999 6. Uncontrolled diabetes mellitus Recommendations: Patient does appear to have suffered an acute ischemic stroke. I will order an MRI of the brain once it is determined PSYCHOLOGICAL OPERATIONS OFFICER shunt to be MRI compatible. Patient continues with dysarthria and dysphagia. Speech therapy is consulted and is following. Patient continues to be nothing by mouth for now. Continue rectal aspirin 300 mg daily. As you recall patient had a carotid Doppler and echocardiogram done in December 2015 which reportedly was within normal range. Fasting lipid panel was elevated and I recommend continuing high-dose Lipitor. Homocystine level was normal at 8.6. EEG was normal. As previously mentioned, patient can be worked up as an outpatient for possible parkinsonism. She'll be seen in the clinic after discharge and a SPECT scan will be ordered at that time. Continue neurological checks. Continue current diabetic management. I will continue to follow with you. Further recommendations to follow. I performed an examination of the patient and discussed the management with the GYM TEACHER. I have reviewed the GYM TEACHER notes and agree with the findings and plan of care.
--- NOTE | 2016-07-20 13:38 | FL ---
MODIFIED SWALLOW / DEGLUTITION STUDY EXAMINATION TYPE: FL barium swallow w video DATE OF EXAM: 07/20/2016 1:19 PM CLINICAL HISTORY: 60-year-old female dysphagia, trouble swallowing, history of stroke. TECHNIQUE: Deglutition study is performed utilizing thin liquid barium, honey and nectar thick liqui d barium, barium thick applesauce, and barium coated cracker. Fluoroscopy time: 2 minutes 3 seconds. COMPARISON: None. FINDINGS: The oral and pharyngeal phases show delay in swallow. The patient is edentulous but is able to ingest solid consistencies. There is a single episode of deep penetration to the level of the vocal cords w ith thin liquid consistency. No aspiration. No aspiration or penetration with any of the other tested consistencies. There is mild piriform sinus residual. ACDF hardware. IMPRESSION: 1. Single episode of deep penetration to the vocal cords with thin liquids. No subsequent penetration or aspiration seen. 2. Delayed swallow. 3. Please refer to speech therapist notes for further details if necessary.
[2016-07-20 21:23] LABS: Glucose,Whole Blood 120 mg/dL (75-99)
[2016-07-20] MEDS: ARIPiprazole 2 MG TAB PO SCH (23:00)
[2016-07-20] MEDS: INSULIN GLARGINE 100 UNIT/ML 10 ML VIAL SQ SCH (23:17)
[2016-07-21 05:44] LABS: Glucose,Whole Blood 73 mg/dL (75-99)
[2016-07-21] MEDS: INSULIN LISPRO (humaLOG) 300 UNIT/3 ML VIAL SQ SCH ×8 (06:51→21:58)
[2016-07-21 06:57] LABS: Basophils % (A) 1 %; CH 30.8; CHCM 32.4; Eosinophils # (A) 0.1 k/uL (0-0.7); Eosinophils % (A) 2 %; HCT 41.4 % (34.0-46.0); HDW 2.53; HGB 13.4 gm/dL (11.4-16.0); Luc # (Auto) 0.11; Luc % (Auto) 2; Lymphocytes # (A) 2.3 k/uL (1.0-4.8); Lymphocytes % (A) 40 %; MCH 30.8 pg (25.0-35.0); MCHC 32.3 g/dL (31.0-37.0); MCV 95.6 fL (80.0-100.0); Mean Platelet Volume 7.7; Monocytes # (A) 0.3 k/uL (0-1.0); Monocytes % (A) 5 %; Neutrophils % (A) 52 %; RBC 4.34 m/uL (3.80-5.40); RDW 13.8 % (11.5-15.5); WBC 5.8 k/uL (3.8-10.6); WBC (Perox) 6.07
[2016-07-21 07:30] LABS: ALT 43 U/L (9-52); AST 21 U/L (14-36); Alkaline Phosphatase 83 U/L (38-126); Anion Gap 8 mmol/L; Blood Urea Nitrogen 17 mg/dL (7-17); Calcium 8.7 mg/dL (8.4-10.2); Carbon Dioxide 26 mmol/L (22-30); Chloride 109 mmol/L (98-107); Glucose 72 mg/dL (74-99); Magnesium 1.5 mg/dL (1.6-2.3); Non-African American GFR(MDRD) >60 (>60 ml/min/1.73 sqM); Potassium 3.7 mmol/L (3.5-5.1); Sodium 143 mmol/L (137-145); Total Bilirubin 0.7 mg/dL (0.2-1.3); Total Protein 5.3 g/dL (6.3-8.2)
[2016-07-21] MEDS: ASPIRIN 300 MG SUPP RECTAL SCH (09:57)
[2016-07-21] MEDS: ATENOLOL 25 MG TAB PO SCH (09:57)
[2016-07-21] MEDS: CLOPIDOGREL 75 MG TAB PO SCH (09:57)
[2016-07-21] MEDS: ATORVASTATIN 80 MG TAB PO SCH (09:58)
[2016-07-21] MEDS: LISINOPRIL-HCTZ 20-12.5 MG 1 EACH TAB PO SCH (10:00)
[2016-07-21] MEDS: PANTOPRAZOLE 40 MG TABLET PO SCH (10:00)
[2016-07-21] MEDS: FENOFIBRATE 160 MG TAB PO SCH (10:01)
[2016-07-21] MEDS: FLUoxetine HCL 20 MG CAP PO SCH (10:01)
[2016-07-21] MEDS: HEPARIN SODIUM,PORCINE 5,000 UNIT/ML 1 ML VIAL SQ SCH ×2 (10:02→21:59)
[2016-07-21] MEDS: lamoTRIgine 100 MG TAB PO SCH ×2 (10:02→21:59)
[2016-07-21] MEDS: PRIMIDONE 50 MG TAB PO SCH ×3 (10:03→21:59)
[2016-07-21] MEDS: HYDROcodone/APAP 5-325MG 1 EACH TAB PO PRN (11:18)
[2016-07-21 11:47] LABS: Glucose,Whole Blood 106 mg/dL (75-99)
--- NOTE | 2016-07-21 12:27 | P.PN ---
Subjective Patient is doing well today. She had an MRI of the brain done at the outside facility awaiting final report. No events overnight. Objective - Vital Signs Vital signs: Vital Signs Temp 98.1 F 07/21/16 04:00 Pulse 58 L 07/21/16 04:00 Resp 18 07/21/16 04:00 BP 105/57 07/21/16 04:00 Pulse Ox 97 07/21/16 09:21 Intake & Output 07/20/16 07/21/16 07/21/16 18:59 06:59 18:59 Intake Total 700 1400 Balance 700 1400 Weight 85 kg Intake: IV 700 1400 Sodium Chloride 0.9% 1, 700 1400 000 ml @ 100 mls/hr IV . Q10H [facility] Rx#:[id number] Other: Voiding Method Bedside Commode Bedside Commode - Exam General: The patient is awake and alert, in no distress Eye: there is normal conjunctiva bilaterally. Neck: The neck is supple, there is no JVD. Cardiovascular: Normal S1-S2, no S3-S4, no murmurs. Respiratory: Lungs clear to auscultation bilaterally Gastrointestinal: Abdomen is soft, nontender Musculoskeletal: There is no pedal edema. Skin: Skin is warm and dry - Labs CBC & Chem 7: 07/21/16 05:58 07/21/16 05:58 Labs: Abnormal Lab Results - Last 24 Hours (Table) 07/20/16 07/21/16 07/21/16 Range/Units 21:21 05:42 05:58 Chloride 109 H (98-107) mmol/L Glucose 72 L (74-99) mg/dL POC Glucose (mg/dL) 120 H 73 L (75-99) mg/dL Magnesium 1.5 L (1.6-2.3) mg/dL Total Protein 5.3 L (6.3-8.2) g/dL Albumin 2.9 L (3.5-5.0) g/dL 07/21/16 Range/Units 11:44 Chloride (98-107) mmol/L Glucose (74-99) mg/dL POC Glucose (mg/dL) 106 H (75-99) mg/dL Magnesium (1.6-2.3) mg/dL Total Protein (6.3-8.2) g/dL Albumin (3.5-5.0) g/dL Assessment and Plan Plan: 1. Slurred speech: With suspected acute ischemic stroke involving the right MCA. Computed tomography scan of the brain showed no acute intracranial findings. Patient had the carotid Doppler and echocardiogram in December 2015 with in normal range. She is on dual antiplatelet therapy chronically at home. Repeat MRI done on 07/20/16 at an outside facility awaiting final report 2. History of hydrocephalus status post COMMUNITY LIFE DIRECTOR shunt placement in year 1999 3. Type 2 diabetes mellitus: Not well controlled, A1c greater than 11. Patient reports good compliance with her Lantus at home. Humalog 5 units before each meal 3 times a day added to her regimen 4. Mixed hyperlipidemia not controlled, total cholesterol 263, LDL 168. Patient is on Lipitor 80 at home and reported good compliance. I would add fenofibrate to her regimen. 5. Tobacco abuse 6. DVT prophylaxis This is a 60-year-old female with complex past medical history noted above who presented to the hospital with worsening confusion and slurred speech. She was evaluated by neurology and was thought to have an acute ischemic stroke involving the right MCA. Computed tomography scan of the brain showed no acute intracranial findings. Patient underwent an MRI awaiting report. She had a dynamic swallow study showed no obvious aspiration. We will continue optimal medical management. Continue PT/OT and speech therapy.
--- NOTE | 2016-07-21 17:04 | P.PN ---
Subjective Principal diagnosis: Patient is a pleasant 60-year-old female who is being followed by the neurology service for stroke. Patient does have history of stroke and was taking Plavix in the home setting. Patient had episode of slurred speech and swallowing difficulties at home but did not seek medical attention. Symptoms began to worsen and patient came to [facility] for further evaluation. Patient had a bedside swallow in the emergency room which she failed. Patient is currently nothing by mouth. Patient continues to have significant swallowing difficulties. Patient does have history of hydrocephalus with a BLOCKMAN shunt which was placed in 1999 at [facility] in [place]. As you recall, computed tomography scan of the brain showed small vessel ischemic changes along with craniotomy changes. BLOCKMAN shunt was visualized. Patient had MRI done at [facility]. MRI did show acute infarct involving right central cerebellum an acute/subacute infarct involving the right basal ganglia. At the time of my evaluation, patient is resting comfortably in bed and appears to be in no acute distress. Patient is still having dysarthria and a mild left facial droop but both seem to be improving. No lateralizing weakness or numbness is noted. Objective - Vital Signs Vital signs: Vital Signs Temp 98.4 F 07/21/16 08:00 Pulse 65 07/21/16 12:00 Resp 19 07/21/16 12:00 BP 135/62 07/21/16 12:00 Pulse Ox 95 07/21/16 12:00 Intake & Output 07/20/16 07/21/16 07/21/16 18:59 06:59 18:59 Intake Total 700 1400 150 Balance 700 1400 150 Weight 85 kg Intake: IV 700 1400 Sodium Chloride 0.9% 1, 700 1400 000 ml @ 100 mls/hr IV . Q10H [facility] Rx#:[id number] Oral 150 Other: Voiding Method Bedside Commode Bedside Commode Bedside Commode # Voids 2 # Bowel Movements 1 - Exam PHYSICAL EXAM: GENERAL APPEARANCE: Patient is a well-developed, female who appears to be in no acute distress. HEENT: Normocephalic, atraumatic, left facial droop is noted. Neck is supple with no masses felt. CARDIOVASCULAR: Regular rate and rhythm. ABDOMEN: Nontender, nondistended. EXTREMITIES: Show no edema or clubbing. NEUROLOGICAL EXAM: Patient is awake, alert, and oriented 3. Speech is dysarthric. Language testing is normal. Strength is full in all 4 extremities. Mild cogwheel rigidity noted to upper extremities. Sensory exam is normal to light touch in all 4 extremities. Mild left facial droop is noted on cranial nerve testing. No tremors or seizure-like activity is seen. - Labs CBC & Chem 7: 07/21/16 05:58 07/21/16 05:58 Labs: Abnormal Lab Results - Last 24 Hours (Table) 07/20/16 07/21/16 07/21/16 Range/Units 21:21 05:42 05:58 Chloride 109 H (98-107) mmol/L Glucose 72 L (74-99) mg/dL POC Glucose (mg/dL) 120 H 73 L (75-99) mg/dL Magnesium 1.5 L (1.6-2.3) mg/dL Total Protein 5.3 L (6.3-8.2) g/dL Albumin 2.9 L (3.5-5.0) g/dL 07/21/16 Range/Units 11:44 Chloride (98-107) mmol/L Glucose (74-99) mg/dL POC Glucose (mg/dL) 106 H (75-99) mg/dL Magnesium (1.6-2.3) mg/dL Total Protein (6.3-8.2) g/dL Albumin (3.5-5.0) g/dL Assessment and Plan Plan: Impression: 1. Acute ischemic stroke, right central cerebellum and acute/subacute infarct involving the right basal ganglia 2. Dysarthria, slowly improving 3. Dysphagia 4. Cogwheel rigidity 5. History of hydrocephalus with BLOCKMAN shunt placement in 1999 6. Uncontrolled diabetes mellitus Recommendations: Patient suffered an acute ischemic stroke involving the right central cerebellum and acute/subacute infarct involving the right basal ganglia. Patient continues with dysarthria and dysphagia. Speech therapy is consulted and is following. Patient continues to be nothing by mouth for now. Continue rectal aspirin 300 mg daily. As you recall patient had a carotid Doppler and echocardiogram done in December 2015 which reportedly was within normal range. Fasting lipid panel was elevated and I recommend continuing high-dose Lipitor. Homocystine level was normal at 8.6. EEG was normal. As previously mentioned, patient can be worked up as an outpatient for possible parkinsonism. She'll be seen in the clinic after discharge and a SPECT scan will be ordered at that time. Continue neurological checks. Continue current diabetic management. I will continue to follow with you. Further recommendations to follow. I performed an examination of the patient and discussed the management with the TUBE HANDLER. I have reviewed the TUBE HANDLER notes and agree with the findings and plan of care.
[2016-07-21 17:05] LABS: Glucose,Whole Blood 65 mg/dL (75-99)
[2016-07-21 18:42] LABS: Glucose,Whole Blood 132 mg/dL (75-99)
[2016-07-21 20:02] LABS: Glucose,Whole Blood 114 mg/dL (75-99)
--- NOTE | 2016-07-21 21:29 | XR ---
EXAMINATION TYPE: XR chest 2V DATE OF EXAM: 07/21/2016 8:21 PM COMPARISON: April 19, 2016 HISTORY: ECF placement, history of TIA TECHNIQUE: 2 views FINDINGS: There is no lung consolidation or major atelectasis. Prominent overlying soft tissues are noted - which can exaggerate lung markings bilaterally. Neverthe less, there does appear to be mild silhouetting of the pulmonary vasculature bilaterally by a fine re ticular pattern of increased density - which is radiographic evidence which can correlate with clinic al diagnosis of mild interstitial phase pulmonary edema. The cardiac silhouette is not enlarged. The pleural spaces are negative. The mediastinal silhouette and bones and soft tissues are unremarkable. IMPRESSION: FINDINGS SUGGEST MILD INTERSTITIAL PHASE PULMONARY EDEMA.
[2016-07-21] MEDS: ARIPiprazole 2 MG TAB PO SCH (21:59)
[2016-07-21] MEDS: INSULIN GLARGINE 100 UNIT/ML 10 ML VIAL SQ SCH (22:05)
[2016-07-22] MEDS: INSULIN LISPRO (humaLOG) 300 UNIT/3 ML VIAL SQ SCH ×8 (06:34→21:39)
[2016-07-22 06:40] LABS: Basophils % (A) 1 %; Eosinophils # (A) 0.1 k/uL (0-0.7); Eosinophils % (A) 2 %; HCT 41.7 % (34.0-46.0); HDW 2.57; HGB 13.3 gm/dL (11.4-16.0); Luc # (Auto) 0.09; Luc % (Auto) 2; Lymphocytes # (A) 2.2 k/uL (1.0-4.8); Lymphocytes % (A) 39 %; MCH 30.1 pg (25.0-35.0); MCHC 31.9 g/dL (31.0-37.0); MCV 94.5 fL (80.0-100.0); Mean Platelet Volume 8.6; Monocytes # (A) 0.4 k/uL (0-1.0); Monocytes % (A) 8 %; Neutrophils # (A) 2.9 k/uL (1.3-7.7); Neutrophils % (A) 50 %; RBC 4.41 m/uL (3.80-5.40); RDW 13.7 % (11.5-15.5); WBC 5.7 k/uL (3.8-10.6); WBC (Perox) 5.47
[2016-07-22 06:44] LABS: Glucose,Whole Blood 58 mg/dL (75-99)
[2016-07-22] MEDS: PANTOPRAZOLE 40 MG TABLET PO SCH (06:44)
[2016-07-22 06:54] LABS: ALT 43 U/L (9-52); AST 25 U/L (14-36); Alkaline Phosphatase 78 U/L (38-126); Anion Gap 11 mmol/L; Blood Urea Nitrogen 12 mg/dL (7-17); Calcium 8.9 mg/dL (8.4-10.2); Carbon Dioxide 23 mmol/L (22-30); Chloride 107 mmol/L (98-107); Glucose 58 mg/dL (74-99); Magnesium 1.5 mg/dL (1.6-2.3); Non-African American GFR(MDRD) >60 (>60 ml/min/1.73 sqM); Potassium 3.3 mmol/L (3.5-5.1); Sodium 141 mmol/L (137-145); Total Bilirubin 0.9 mg/dL (0.2-1.3); Total Protein 5.6 g/dL (6.3-8.2)
[2016-07-22 07:13] LABS: Glucose,Whole Blood 77 mg/dL (75-99)
[2016-07-22] MEDS: ASPIRIN 325 MG TAB PO SCH (08:54)
[2016-07-22] MEDS: HEPARIN SODIUM,PORCINE 5,000 UNIT/ML 1 ML VIAL SQ SCH ×2 (08:54→20:46)
[2016-07-22] MEDS: ATORVASTATIN 80 MG TAB PO SCH (08:54)
[2016-07-22] MEDS: lamoTRIgine 100 MG TAB PO SCH ×2 (08:55→20:48)
[2016-07-22] MEDS: FENOFIBRATE 160 MG TAB PO SCH (08:55)
[2016-07-22] MEDS: CLOPIDOGREL 75 MG TAB PO SCH (08:55)
[2016-07-22] MEDS: FLUoxetine HCL 20 MG CAP PO SCH (08:56)
[2016-07-22] MEDS: PRIMIDONE 50 MG TAB PO SCH ×3 (08:57→20:48)
[2016-07-22] MEDS: ATENOLOL 25 MG TAB PO SCH (08:57)
[2016-07-22] MEDS: LISINOPRIL-HCTZ 20-12.5 MG 1 EACH TAB PO SCH (08:57)
[2016-07-22 11:55] LABS: Glucose,Whole Blood 98 mg/dL (75-99)
--- NOTE | 2016-07-22 13:50 | P.PN ---
Subjective Patient is doing better today Objective - Vital Signs Vital signs: Vital Signs Temp 98.7 F 07/22/16 12:00 Pulse 64 07/22/16 12:00 Resp 18 07/22/16 12:00 BP 131/64 07/22/16 12:00 Pulse Ox 95 07/22/16 12:00 Intake & Output 07/21/16 07/22/16 07/22/16 18:59 06:59 18:59 Intake Total 330 368 Balance 330 368 Weight 82.1 kg Intake: Oral 330 368 Other: Voiding Method Bedside Commode Bedside Commode Bedside Commode # Voids 2 1 # Bowel Movements 1 - Exam General: The patient is awake and alert, in no distress Eye: there is normal conjunctiva bilaterally. Neck: The neck is supple, there is no JVD. Cardiovascular: Normal S1-S2, no S3-S4, no murmurs. Respiratory: Lungs clear to auscultation bilaterally Gastrointestinal: Abdomen is soft, nontender Musculoskeletal: There is no pedal edema. Skin: Skin is warm and dry - Labs CBC & Chem 7: 07/22/16 06:17 07/22/16 06:17 Labs: Abnormal Lab Results - Last 24 Hours (Table) 07/21/16 07/21/16 07/21/16 Range/Units 17:00 18:31 20:01 Potassium (3.5-5.1) mmol/L Glucose (74-99) mg/dL POC Glucose (mg/dL) 65 L 132 H 114 H (75-99) mg/dL Magnesium (1.6-2.3) mg/dL Total Protein (6.3-8.2) g/dL Albumin (3.5-5.0) g/dL 07/22/16 07/22/16 Range/Units 06:17 06:28 Potassium 3.3 L (3.5-5.1) mmol/L Glucose 58 L (74-99) mg/dL POC Glucose (mg/dL) 58 L (75-99) mg/dL Magnesium 1.5 L (1.6-2.3) mg/dL Total Protein 5.6 L (6.3-8.2) g/dL Albumin 3.1 L (3.5-5.0) g/dL Assessment and Plan Plan: 1. Acute stroke involving the right central cerebellum and right basal ganglia noted on MRI of the brain. Computed tomography scan of the brain showed no acute intracranial findings on presentation . Patient had the carotid Doppler and echocardiogram in December 2015 with in normal range. She is on dual antiplatelet therapy chronically at home. Repeat MRI done on 07/20/16 at an outside facility awaiting final report 2. History of hydrocephalus status post SEMICONDUCTOR WAFER INSPECTOR shunt placement in year 1999 3. Type 2 diabetes mellitus: Not well controlled, A1c greater than 11. Patient reports good compliance with her Lantus at home. Humalog 5 units before each meal 3 times a day added to her regimen 4. Mixed hyperlipidemia not controlled, total cholesterol 263, LDL 168. Patient is on Lipitor 80 at home and reported good compliance. I would add fenofibrate to her regimen. 5. Tobacco abuse 6. DVT prophylaxis Continue supportive care. PT/OT. Speech therapy. Anticipate discharge to ECF. Dual antiplatelet therapy.
--- NOTE | 2016-07-22 16:14 | US ---
EXAMINATION TYPE: US carotid duplex BILAT DATE OF EXAM: 07/22/2016 3:57 PM COMPARISON: NONE CLINICAL HISTORY: Recurrent stroke. EXAM MEASUREMENTS: RIGHT: Peak Systolic Velocity (PSV) cm/sec ----- Right CCA: 72.9 ----- Right ICA: 93.5 ----- Right ECA: 171.2 ICA/CCA ratio: 1.3 RIGHT: End Diastole cm/sec ----- Right CCA: 15.5 ----- Right ICA: 19.2 ----- Right ECA: 19.5 LEFT: Peak Systolic Velocity (PSV) cm/sec ----- Left CCA: 79.0 ----- Left ICA: 106.0 ----- Left ECA: 141.7 ICA/CCA ratio: 1.3 LEFT: End Diastole cm/sec ----- Left CCA: 16.0 ----- Left ICA: 30.9 ----- Left ECA: 15.6 VERTEBRALS (direction of flow): Right Vertebral: Antegrade Left Vertebral: Antegrade TECHNOLOGIST IMPRESSION: Left vertebral flow appears diminished. Moderate plaque noted bilateral bif urcations. Increased velocities bilateral ECA's IMPRESSION: 1. I do not see evidence of a hemodynamically significant stenosis involving either common or interna l carotid artery. 2. Elevated flow velocities, both external carotid arteries. 3. Decreased flow in the left vertebral artery origins further investigation with CTA versus MRI of t he neck would be suggested. Criteria for Assigning % of Stenosis / Diameter reduction (Estimation based on the indirect measurements of the internal carotid artery velocities (ICA PSV). 1. Normal (no stenosis)=ICA PSV < 125 cm/s: ratio < 2.0: ICA EDV<40 cm/s. 2. Less than 50% stenosis=ICA PSV < 125 cm/s: ratio < 2.0: ICA EDV<40 cm/s. 3. 50 to 69% stenosis=ICA PSV of 125 to 230 cm/s: ration 2.0 ? 4.0: ICA EDV 40-100 cm/s. 4. Greater than 70% stenosis to near occlusion= ICA PSV > 230 cm/s: ratio > 4.0: ICA EDV > 100 cm/s. 5. Near occlusion= ICA PSV velocities may be low or undetectable: variable ratio and ICA EDV. 6. Total occlusion=unable to detect flow.
[2016-07-22 17:01] LABS: Glucose,Whole Blood 119 mg/dL (75-99)
--- NOTE | 2016-07-22 17:04 | P.PN ---
Subjective Principal diagnosis: Patient is a pleasant 60-year-old female who is being followed by the neurology service for stroke. Patient does have history of stroke and was taking Plavix in the home setting. Patient had episode of slurred speech and swallowing difficulties at home but did not seek medical attention. Symptoms began to worsen and patient came to [facility] for further evaluation. Patient had a bedside swallow in the emergency room which she failed. Patient had repeat swallow study done and is currently on a pured diet. Patient does have history of hydrocephalus with a FARMWORKER BULBS shunt which was placed in 1999 at [facility] in [place]. As you recall, computed tomography scan of the brain showed small vessel ischemic changes along with craniotomy changes. FARMWORKER BULBS shunt was visualized. Patient had MRI done at [facility]. MRI did show acute infarct involving right central cerebellum an acute/subacute infarct involving the right basal ganglia. At the time of my evaluation, patient is resting comfortably in bed and appears to be in no acute distress. Patient is still having dysarthria and a mild left facial droop but both seem to be improving. No lateralizing weakness or numbness is noted. Objective - Vital Signs Vital signs: Vital Signs Temp 98.7 F 07/22/16 12:00 Pulse 64 07/22/16 12:00 Resp 18 07/22/16 12:00 BP 131/64 07/22/16 12:00 Pulse Ox 95 07/22/16 12:00 Intake & Output 07/21/16 07/22/16 07/22/16 18:59 06:59 18:59 Intake Total 330 368 Balance 330 368 Weight 82.1 kg 82.1 kg Intake: Oral 330 368 Other: Voiding Method Bedside Commode Bedside Commode Bedside Commode # Voids 2 1 # Bowel Movements 1 - Exam PHYSICAL EXAM: GENERAL APPEARANCE: Patient is a well-developed, female who appears to be in no acute distress. HEENT: Normocephalic, atraumatic, left facial droop is noted. Neck is supple with no masses felt. CARDIOVASCULAR: Regular rate and rhythm. ABDOMEN: Nontender, nondistended. EXTREMITIES: Show no edema or clubbing. NEUROLOGICAL EXAM: Patient is awake, alert, and oriented 3. Speech is dysarthric. Language testing is normal. Strength is full in all 4 extremities. Mild cogwheel rigidity noted to upper extremities. Sensory exam is normal to light touch in all 4 extremities. Mild left facial droop is noted on cranial nerve testing. No tremors or seizure-like activity is seen. - Labs CBC & Chem 7: 07/22/16 06:17 07/22/16 06:17 Labs: Abnormal Lab Results - Last 24 Hours (Table) 07/21/16 07/21/16 07/21/16 Range/Units 17:00 18:31 20:01 Potassium (3.5-5.1) mmol/L Glucose (74-99) mg/dL POC Glucose (mg/dL) 65 L 132 H 114 H (75-99) mg/dL Magnesium (1.6-2.3) mg/dL Total Protein (6.3-8.2) g/dL Albumin (3.5-5.0) g/dL 07/22/16 07/22/16 Range/Units 06:17 06:28 Potassium 3.3 L (3.5-5.1) mmol/L Glucose 58 L (74-99) mg/dL POC Glucose (mg/dL) 58 L (75-99) mg/dL Magnesium 1.5 L (1.6-2.3) mg/dL Total Protein 5.6 L (6.3-8.2) g/dL Albumin 3.1 L (3.5-5.0) g/dL Assessment and Plan Plan: Impression: 1. Acute ischemic stroke, right central cerebellum and acute/subacute infarct involving the right basal ganglia 2. Dysarthria, slowly improving 3. Dysphagia 4. Cogwheel rigidity 5. History of hydrocephalus with FARMWORKER BULBS shunt placement in 1999 6. Uncontrolled diabetes mellitus Recommendations: Patient suffered an acute ischemic stroke involving the right central cerebellum and acute/subacute infarct involving the right basal ganglia. Patient continues with dysarthria and dysphagia. Speech therapy is consulted and is following. Continue rectal aspirin 300 mg daily. I recommend Plavix 75 mg daily when patient can tolerate oral medication. As you recall patient had a carotid Doppler and echocardiogram done in December 2015 which reportedly was within normal range. Patient had a repeat carotid Doppler today with no hemodynamically significant stenosis. Fasting lipid panel was elevated and I recommend continuing high-dose Lipitor. Homocystine level was normal at 8.6. EEG was normal. As previously mentioned, patient can be worked up as an outpatient for possible parkinsonism. She'll be seen in the clinic after discharge and a SPECT scan will be ordered at that time. Continue neurological checks. Continue current diabetic management. I will continue to follow with you. Further recommendations to follow. I performed an examination of the patient and discussed the management with the SURVEY RESEARCH MANAGER. I have reviewed the SURVEY RESEARCH MANAGER notes and agree with the findings and plan of care.
[2016-07-22] MEDS: NYSTATIN 100,000 UNIT/ML SUSP 500,000 UNIT/5 ML CUP PO SCH ×2 (18:16→21:39)
[2016-07-22] MEDS: guaiFENesin 600 MG TABLET.ER PO PRN (18:16)
[2016-07-22] MEDS: ARIPiprazole 2 MG TAB PO SCH (20:46)
[2016-07-22 21:05] LABS: Glucose,Whole Blood 196 mg/dL (75-99)
[2016-07-22] MEDS: INSULIN GLARGINE 100 UNIT/ML 10 ML VIAL SQ SCH (21:39)
[2016-07-23 06:31] LABS: Glucose,Whole Blood 55 mg/dL (75-99)
[2016-07-23] MEDS: INSULIN LISPRO (humaLOG) 300 UNIT/3 ML VIAL SQ SCH ×8 (06:34→21:00)
[2016-07-23] MEDS: PANTOPRAZOLE 40 MG TABLET PO SCH (06:36)
[2016-07-23 06:46] LABS: Glucose,Whole Blood 68 mg/dL (75-99)
[2016-07-23 06:46] LABS: Basophils % (A) 1 %; CH 30.9; CHCM 32.9; Eosinophils # (A) 0.1 k/uL (0-0.7); Eosinophils % (A) 2 %; HCT 41.8 % (34.0-46.0); HGB 13.6 gm/dL (11.4-16.0); Luc # (Auto) 0.17; Luc % (Auto) 3; Lymphocytes # (A) 2.7 k/uL (1.0-4.8); Lymphocytes % (A) 41 %; MCH 30.6 pg (25.0-35.0); MCHC 32.5 g/dL (31.0-37.0); MCV 94.3 fL (80.0-100.0); Mean Platelet Volume 8.2; Monocytes # (A) 0.5 k/uL (0-1.0); Monocytes % (A) 7 %; Neutrophils % (A) 46 %; RBC 4.43 m/uL (3.80-5.40); RDW 13.8 % (11.5-15.5); WBC 6.5 k/uL (3.8-10.6); WBC (Perox) 6.72
[2016-07-23 06:54] LABS: Glucose,Whole Blood 82 mg/dL (75-99)
[2016-07-23 06:59] LABS: Anion Gap 9 mmol/L; Carbon Dioxide 25 mmol/L (22-30); Chloride 105 mmol/L (98-107); Glucose 54 mg/dL (74-99); Non-African American GFR(MDRD) >60 (>60 ml/min/1.73 sqM); Sodium 139 mmol/L (137-145); Total Bilirubin 0.8 mg/dL (0.2-1.3); Total Protein 5.8 g/dL (6.3-8.2)
[2016-07-23 07:04] LABS: ALT 46 U/L (9-52); AST 33 U/L (14-36); Alkaline Phosphatase 73 U/L (38-126); Blood Urea Nitrogen 12 mg/dL (7-17); Magnesium 1.4 mg/dL (1.6-2.3); Potassium 3.9 mmol/L (3.5-5.1)
--- NOTE | 2016-07-23 09:06 | ECHOF ---
Referral Reason:Recurrent stroke MEASUREMENTS -------- HEIGHT: 160.0 cm WEIGHT: 81.7 kg BP: 131/64 RVIDd: 2.7 cm (< 3.3) IVSd: 1.0 cm (0.6 - 1.1) LVIDd: 3.4 cm (3.9 - 5.3) LVPWd: 0.9 cm (0.6 - 1.1) IVSs: 1.5 cm LVIDs: 2.5 cm LVPWs: 1.6 cm LA Diam: 3.2 cm (2.7 - 3.8) LAESV Index (A-L): 21.56 ml/m Ao Diam: 2.8 cm (2.0 - 3.7) AV Cusp: 1.5 cm (1.5 - 2.6) LA Diam: 3.1 cm (2.7 - 3.8) MV EXCURSION: 12.039 mm (> 18.000) MV EF SLOPE: 60 mm/s (70 - 150) EPSS: 0.3 cm MV E Uziel: 0.87 m/s MV DecT: 262 ms MV A Uziel: 0.99 m/s MV E/A Ratio: 0.88 RAP: 5.00 mmHg RVSP: 28.26 mmHg FINDINGS -------- Sinus rhythm. This was a technically good study. Left ventricular wall thickness is normal. Overall left ventricular systolic function is normal with, an EF between 55 - 60 %. The right ventricle is normal in size. Normal LA size by volume 22+/-6 ml/m2. The right atrium is normal in size. Aortic valve is trileaflet and is mildly thickened. Mild mitral annular calcification present. There is trace mitral regurgitation. Mild tricuspid regurgitation present. Right ventricular systolic pressure is normal at < 35 mmHg. Pulmonic valve appears structurally normal. The aortic root size is normal. Normal inferior vena cava with normal inspiratory collapse consistent with estimated right atrial pressure of 5 mmHg. There is no pericardial effusion. CONCLUSIONS -------- 1. Sinus rhythm. 2. There is trace mitral regurgitation. 3. Mild tricuspid regurgitation present. 4. Right ventricular systolic pressure is normal at < 35 mmHg. 5. Pulmonic valve appears structurally normal. 6. The aortic root size is normal. 7. There is no pericardial effusion. 8. This was a technically good study. 9. Left ventricular wall thickness is normal. 10. Overall left ventricular systolic function is normal with, an EF between 55 - 60 %. 11. The right ventricle is normal in size. 12. Normal LA size by volume 22+/-6 ml/m2. 13. The right atrium is normal in size. 14. Aortic valve is trileaflet and is mildly thickened. 15. Mild mitral annular calcification present. MEDIA MARKETING COORDINATOR: Nate Jin RDCS
[2016-07-23] MEDS: ASPIRIN 325 MG TAB PO SCH (09:28)
[2016-07-23] MEDS: NYSTATIN 100,000 UNIT/ML SUSP 500,000 UNIT/5 ML CUP PO SCH ×4 (09:28→20:40)
[2016-07-23] MEDS: CLOPIDOGREL 75 MG TAB PO SCH (09:28)
[2016-07-23] MEDS: lamoTRIgine 100 MG TAB PO SCH ×2 (09:29→20:39)
[2016-07-23] MEDS: ATENOLOL 25 MG TAB PO SCH (09:30)
[2016-07-23] MEDS: HEPARIN SODIUM,PORCINE 5,000 UNIT/ML 1 ML VIAL SQ SCH ×2 (09:30→20:35)
[2016-07-23] MEDS: FENOFIBRATE 160 MG TAB PO SCH (09:31)
[2016-07-23] MEDS: PRIMIDONE 50 MG TAB PO SCH ×3 (09:31→20:40)
[2016-07-23] MEDS: FLUoxetine HCL 20 MG CAP PO SCH (09:32)
[2016-07-23] MEDS: ATORVASTATIN 80 MG TAB PO SCH (09:32)
[2016-07-23] MEDS: LISINOPRIL-HCTZ 20-12.5 MG 1 EACH TAB PO SCH (09:33)
[2016-07-23] MEDS ORDERED: IPRATROPIUM-ALBUTEROL 3 ML NEB INHALATION PRN (12:29)
--- NOTE | 2016-07-23 12:30 | P.PN ---
Subjective No events overnight. Patient is complaining of a lot of cough this morning. Objective - Vital Signs Vital signs: Vital Signs Temp 98.3 F 07/23/16 08:00 Pulse 73 07/23/16 08:00 Resp 18 07/23/16 08:00 BP 117/77 07/23/16 08:00 Pulse Ox 96 07/23/16 08:00 Intake & Output 07/22/16 07/23/16 07/23/16 18:59 06:59 18:59 Intake Total 518 Balance 518 Weight 82.1 kg 82.1 kg Intake: Oral 518 Other: Voiding Method Bedside Commode Bedside Commode Bedside Commode # Voids 1 - Exam General: The patient is awake and alert, in no distress Eye: there is normal conjunctiva bilaterally. Neck: The neck is supple, there is no JVD. Cardiovascular: Normal S1-S2, no S3-S4, no murmurs. Respiratory: Lungs clear to auscultation bilaterally Gastrointestinal: Abdomen is soft, nontender Musculoskeletal: There is no pedal edema. Skin: Skin is warm and dry - Labs CBC & Chem 7: 07/23/16 06:17 07/23/16 06:13 Labs: Abnormal Lab Results - Last 24 Hours (Table) 07/22/16 07/22/16 07/23/16 Range/Units 16:59 21:04 06:13 Glucose 54 L (74-99) mg/dL POC Glucose (mg/dL) 119 H 196 H (75-99) mg/dL Magnesium 1.4 L (1.6-2.3) mg/dL Total Protein 5.8 L (6.3-8.2) g/dL Albumin 3.3 L (3.5-5.0) g/dL 07/23/16 07/23/16 Range/Units 06:29 06:44 Glucose (74-99) mg/dL POC Glucose (mg/dL) 55 L 68 L (75-99) mg/dL Magnesium (1.6-2.3) mg/dL Total Protein (6.3-8.2) g/dL Albumin (3.5-5.0) g/dL Assessment and Plan Plan: 1. Acute stroke involving the right central cerebellum and right basal ganglia noted on MRI of the brain. Computed tomography scan of the brain showed no acute intracranial findings on presentation . Echocardiogram and Doppler ultrasound of the carotid arteries showed no significant findings. 2. History of hydrocephalus status post SOLE CUTTER shunt placement in year 1999 3. Type 2 diabetes mellitus: Not well controlled, A1c greater than 11. Patient reports good compliance with her Lantus at home. Humalog 5 units before each meal 3 times a day added to her regimen 4. Mixed hyperlipidemia not controlled, total cholesterol 263, LDL 168. Patient is on Lipitor 80 at home and reported good compliance. I would add fenofibrate to her regimen. 5. Tobacco abuse 6. DVT prophylaxis Continue supportive care. PT/OT. Speech therapy. Anticipate discharge to ECF on Monday . Dual antiplatelet therapy.
[2016-07-23 12:43] LABS: Glucose,Whole Blood 134 mg/dL (75-99)
--- NOTE | 2016-07-23 13:18 | P.PN ---
Subjective Principal diagnosis: Patient is a pleasant 60-year-old female who is being followed by the neurology service for stroke. Patient does have history of stroke and was taking Plavix in the home setting. Patient had episode of slurred speech and swallowing difficulties at home but did not seek medical attention. Symptoms began to worsen and patient came to [facility] for further evaluation. Patient had a bedside swallow in the emergency room which she failed. Patient had repeat swallow study done and is currently on a pured diet. Patient does have history of hydrocephalus with a FILLER OPERATOR shunt which was placed in 1999 at [facility] in [place]. As you recall, computed tomography scan of the brain showed small vessel ischemic changes along with craniotomy changes. FILLER OPERATOR shunt was visualized. Patient had MRI done at [facility]. MRI did show acute infarct involving right central cerebellum an acute/subacute infarct involving the right basal ganglia. At the time of my evaluation, patient is resting comfortably in bed and appears to be in no acute distress. Patient is still having dysarthria and a mild left facial droop but both seem to be improving. No lateralizing weakness or numbness is noted. Objective - Vital Signs Vital signs: Vital Signs Temp 98.3 F 07/23/16 08:00 Pulse 73 07/23/16 08:00 Resp 18 07/23/16 08:00 BP 117/77 07/23/16 08:00 Pulse Ox 96 07/23/16 08:00 Intake & Output 07/22/16 07/23/16 07/23/16 18:59 06:59 18:59 Intake Total 518 Balance 518 Weight 82.1 kg 82.1 kg Intake: Oral 518 Other: Voiding Method Bedside Commode Bedside Commode Bedside Commode # Voids 1 - Exam PHYSICAL EXAM: GENERAL APPEARANCE: Patient is a well-developed, female who appears to be in no acute distress. HEENT: Normocephalic, atraumatic, left facial droop is noted. Neck is supple with no masses felt. CARDIOVASCULAR: Regular rate and rhythm. ABDOMEN: Nontender, nondistended. EXTREMITIES: Show no edema or clubbing. NEUROLOGICAL EXAM: Patient is awake, alert, and oriented 3. Speech is dysarthric but improving. Language testing is normal. Strength is full in all 4 extremities. Mild cogwheel rigidity noted to upper extremities. Sensory exam is normal to light touch in all 4 extremities. Mild left facial droop is noted on cranial nerve testing. No tremors or seizure-like activity is seen. - Labs CBC & Chem 7: 07/23/16 06:17 07/23/16 06:13 Labs: Abnormal Lab Results - Last 24 Hours (Table) 07/22/16 07/22/16 07/23/16 Range/Units 16:59 21:04 06:13 Glucose 54 L (74-99) mg/dL POC Glucose (mg/dL) 119 H 196 H (75-99) mg/dL Magnesium 1.4 L (1.6-2.3) mg/dL Total Protein 5.8 L (6.3-8.2) g/dL Albumin 3.3 L (3.5-5.0) g/dL 07/23/16 07/23/16 07/23/16 Range/Units 06:29 06:44 12:03 Glucose (74-99) mg/dL POC Glucose (mg/dL) 55 L 68 L 134 H (75-99) mg/dL Magnesium (1.6-2.3) mg/dL Total Protein (6.3-8.2) g/dL Albumin (3.5-5.0) g/dL Assessment and Plan Plan: Impression: 1. Acute ischemic stroke, right central cerebellum and acute/subacute infarct involving the right basal ganglia 2. Dysarthria, slowly improving 3. Dysphagia 4. Cogwheel rigidity 5. History of hydrocephalus with FILLER OPERATOR shunt placement in 1999 6. Uncontrolled diabetes mellitus Recommendations: Patient suffered an acute ischemic stroke involving the right central cerebellum and acute/subacute infarct involving the right basal ganglia. Patient continues with dysarthria and dysphagia. Speech therapy is consulted and is following. Continue rectal aspirin 300 mg daily. I recommend Plavix 75 mg daily when patient can tolerate oral medication. Carotid Doppler showed no hemodynamically significant stenosis. Fasting lipid panel was elevated and I recommend continuing high-dose Lipitor. Homocystine level was normal at 8.6. EEG was normal. As previously mentioned, patient can be worked up as an outpatient for possible parkinsonism. She'll be seen in the clinic after discharge and a SPECT scan will be ordered at that time. Continue neurological checks. Continue current diabetic management. Okay for patient to be discharged from neurology standpoint. I will continue to follow with you on an as-needed basis. Feel free to call with any questions or concerns. I performed an examination of the patient and discussed the management with the ECDIS N NAVIGATION OPERATOR. I have reviewed the ECDIS N NAVIGATION OPERATOR notes and agree with the findings and plan of care.
[2016-07-23] MEDS: guaiFENesin 600 MG TABLET.ER PO PRN (15:52)
[2016-07-23] MEDS: HYDROcodone/APAP 5-325MG 1 EACH TAB PO PRN (15:52)
[2016-07-23 17:13] LABS: Glucose,Whole Blood 174 mg/dL (75-99)
[2016-07-23] MEDS: ARIPiprazole 2 MG TAB PO SCH (20:34)
[2016-07-23 20:53] LABS: Glucose,Whole Blood 132 mg/dL (75-99)
[2016-07-23] MEDS: INSULIN GLARGINE 100 UNIT/ML 10 ML VIAL SQ SCH (21:00)
[2016-07-24 06:11] LABS: Glucose,Whole Blood 99 mg/dL (75-99)
[2016-07-24] MEDS: INSULIN LISPRO (humaLOG) 300 UNIT/3 ML VIAL SQ SCH ×8 (06:31→21:48)
[2016-07-24] MEDS: PANTOPRAZOLE 40 MG TABLET PO SCH (06:38)
[2016-07-24] MEDS: ASPIRIN 325 MG TAB PO SCH (09:48)
[2016-07-24] MEDS: ATORVASTATIN 80 MG TAB PO SCH (09:48)
[2016-07-24] MEDS: PRIMIDONE 50 MG TAB PO SCH ×3 (09:49→20:27)
[2016-07-24] MEDS: lamoTRIgine 100 MG TAB PO SCH ×2 (09:50→21:51)
[2016-07-24] MEDS: NYSTATIN 100,000 UNIT/ML SUSP 500,000 UNIT/5 ML CUP PO SCH ×4 (09:51→20:27)
[2016-07-24] MEDS: CLOPIDOGREL 75 MG TAB PO SCH (09:52)
[2016-07-24] MEDS: FENOFIBRATE 160 MG TAB PO SCH (09:52)
[2016-07-24] MEDS: ATENOLOL 25 MG TAB PO SCH (09:52)
[2016-07-24] MEDS: HEPARIN SODIUM,PORCINE 5,000 UNIT/ML 1 ML VIAL SQ SCH ×2 (09:53→20:26)
[2016-07-24] MEDS: FLUoxetine HCL 20 MG CAP PO SCH (09:53)
[2016-07-24] MEDS: LISINOPRIL-HCTZ 20-12.5 MG 1 EACH TAB PO SCH (09:54)
[2016-07-24 11:28] LABS: Glucose,Whole Blood 176 mg/dL (75-99)
--- NOTE | 2016-07-24 12:13 | P.PN ---
Subjective No events overnight. Patient is complaining of a lot of cough this morning. Objective - Vital Signs Vital signs: Vital Signs Temp 97.8 F 07/24/16 08:30 Pulse 77 07/24/16 08:30 Resp 18 07/24/16 08:30 BP 124/59 07/24/16 08:30 Pulse Ox 95 07/24/16 08:30 Intake & Output 07/23/16 07/24/16 07/24/16 18:59 06:59 18:59 Intake Total 250 Balance 250 Weight 81.5 kg Intake: Oral 250 Other: Voiding Method Bedside Commode Bedside Commode Bedside Commode # Voids 1 - Exam General: The patient is awake and alert, in no distress Eye: there is normal conjunctiva bilaterally. Neck: The neck is supple, there is no JVD. Cardiovascular: Normal S1-S2, no S3-S4, no murmurs. Respiratory: Lungs clear to auscultation bilaterally Gastrointestinal: Abdomen is soft, nontender Musculoskeletal: There is no pedal edema. Skin: Skin is warm and dry - Labs CBC & Chem 7: 07/23/16 06:17 07/23/16 06:13 Labs: Abnormal Lab Results - Last 24 Hours (Table) 07/23/16 07/23/16 07/23/16 Range/Units 12:03 17:10 20:51 POC Glucose (mg/dL) 134 H 174 H 132 H (75-99) mg/dL 07/24/16 Range/Units 11:20 POC Glucose (mg/dL) 176 H (75-99) mg/dL Assessment and Plan Plan: 1. Acute stroke involving the right central cerebellum and right basal ganglia noted on MRI of the brain. Computed tomography scan of the brain showed no acute intracranial findings on presentation . Echocardiogram and Doppler ultrasound of the carotid arteries showed no significant findings. 2. History of hydrocephalus status post PATTERN CHANGER AND REPAIRER shunt placement in year 1999 3. Type 2 diabetes mellitus: Not well controlled, A1c greater than 11. Patient reports good compliance with her Lantus at home. Humalog 5 units before each meal 3 times a day added to her regimen 4. Mixed hyperlipidemia not controlled, total cholesterol 263, LDL 168. Patient is on Lipitor 80 at home and reported good compliance. I would add fenofibrate to her regimen. 5. Tobacco abuse 6. DVT prophylaxis Continue supportive care. PT/OT. Speech therapy. Anticipate discharge to [facility] on Monday . Dual antiplatelet therapy.
[2016-07-24 17:23] LABS: Glucose,Whole Blood 60 mg/dL (75-99)
[2016-07-24 17:23] LABS: Glucose,Whole Blood 62 mg/dL (75-99)
[2016-07-24 19:20] LABS: Glucose,Whole Blood 247 mg/dL (75-99)
[2016-07-24] MEDS: ARIPiprazole 2 MG TAB PO SCH (20:26)
[2016-07-24] MEDS: HYDROcodone/APAP 5-325MG 1 EACH TAB PO PRN (20:30)
[2016-07-24 21:47] LABS: Glucose,Whole Blood 199 mg/dL (75-99)
[2016-07-24] MEDS: INSULIN GLARGINE 100 UNIT/ML 10 ML VIAL SQ SCH (21:47)
[2016-07-25 05:59] LABS: Glucose,Whole Blood 69 mg/dL (75-99)
[2016-07-25] MEDS: INSULIN LISPRO (humaLOG) 300 UNIT/3 ML VIAL SQ SCH ×4 (06:35→12:00)
[2016-07-25 06:39] LABS: Glucose,Whole Blood 108 mg/dL (75-99)
[2016-07-25] MEDS: PANTOPRAZOLE 40 MG TABLET PO SCH (07:10)
[2016-07-25] MEDS: ASPIRIN 325 MG TAB PO SCH (09:53)
[2016-07-25] MEDS: ATENOLOL 25 MG TAB PO SCH (09:53)
[2016-07-25] MEDS: FENOFIBRATE 160 MG TAB PO SCH (09:53)
[2016-07-25] MEDS: lamoTRIgine 100 MG TAB PO SCH (09:53)
[2016-07-25] MEDS: FLUoxetine HCL 20 MG CAP PO SCH (09:53)
[2016-07-25] MEDS: HEPARIN SODIUM,PORCINE 5,000 UNIT/ML 1 ML VIAL SQ SCH (09:53)
[2016-07-25] MEDS: CLOPIDOGREL 75 MG TAB PO SCH (09:53)
[2016-07-25] MEDS: ATORVASTATIN 80 MG TAB PO SCH (09:53)
[2016-07-25] MEDS: PRIMIDONE 50 MG TAB PO SCH ×2 (09:53→15:41)
[2016-07-25] MEDS: LISINOPRIL-HCTZ 20-12.5 MG 1 EACH TAB PO SCH (09:53)
[2016-07-25] MEDS: NYSTATIN 100,000 UNIT/ML SUSP 500,000 UNIT/5 ML CUP PO SCH ×2 (09:53→14:33)
--- NOTE | 2016-07-25 10:59 | P.DS ---
Providers Date of admission: 07/18/16 09:48 Expected date of discharge: 07/25/16 Attending physician: Rolf Israel Primary care physician: Lena Sequeira [facility] Course: 1. Acute stroke involving the right central cerebellum and right basal ganglia noted on MRI of the brain. Computed tomography scan of the brain showed no acute intracranial findings on presentation . Echocardiogram and Doppler ultrasound of the carotid arteries showed no significant findings. 2. History of hydrocephalus status post DOOR BUILDER shunt placement in year 1999 3. Type 2 diabetes mellitus: Not well controlled, A1c greater than 11. Patient reports good compliance with her Lantus at home. Humalog 5 units before each meal 3 times a day added to her regimen 4. Mixed hyperlipidemia not controlled, total cholesterol 263, LDL 168. Patient is on Lipitor 80 at home and reported good compliance. I would add fenofibrate to her regimen. 5. Tobacco abuse 6. Physical debility Patient will be transferred to [facility] for rehabilitation and speech therapy. Patient Condition at Discharge: Fair Plan - Discharge Summary New Discharge Prescriptions: HYDROcodone/APAP 5-325MG [Thendara 5-325] 1 tab PO Q6HR PRN #30 tab PRN Reason: Pain LORazepam [Ativan] 0.5 mg PO HS #20 tab Discharge Medication List ARIPiprazole [Abilify] 2 mg PO HS 12/13/15 [History] Ergocalciferol [Vitamin D2 (DRISDOL)] 50,000 unit PO TH 12/13/15 [History] FLUoxetine HCL [PROzac] 60 mg PO DAILY 12/13/15 [History] Omeprazole [PriLOSEC] 20 mg PO AC-BRKFST 12/13/15 [History] Primidone [Mysoline] 50 mg PO TID 12/13/15 [History] lamoTRIgine [LaMICtal] 150 mg PO BID 12/13/15 [History] metFORMIN HCL [Glucophage] 850 mg PO BID 12/13/15 [History] Atorvastatin [Lipitor] 80 mg PO DAILY #30 tab 12/17/15 [Rx] Clopidogrel [Plavix] 75 mg PO DAILY #30 tab 04/22/16 [Rx] Atenolol 25 mg PO QAM 07/18/16 [History] Lisinopril-Hctz 20-12.5 mg [Zestoretic 20-12.5] 1 tab PO DAILY 07/18/16 [History ] Fenofibrate [Lofibra] 160 mg PO DAILY tab 07/25/16 [Rx] HYDROcodone/APAP 5-325MG [Thendara 5-325] 1 tab PO Q6HR PRN #30 tab 07/25/16 [Rx] INSULIN LISPRO (humaLOG) [humaLOG (formulary)] 5 unit SQ ACHS vial 07/25/16 [Rx ] Insulin Glargine [Lantus] 30 unit SQ HS vial 07/25/16 [Rx] LORazepam [Ativan] 0.5 mg PO HS #20 tab 07/25/16 [Rx] Follow up Appointment(s)/Referral(s): Lena Sequeira MD [Primary Care Provider] - 1-2 days Anat Karimi MD [STAFF PHYSICIAN] - 1 Week Discharge Disposition: TRANSFER TO SNF/ECF
[2016-07-25 11:50] LABS: Glucose,Whole Blood 66 mg/dL (75-99)
[2016-07-25] MEDS ORDERED: DEXTROSE 50%-WATER 50 ML SYRINGE IVP ONE (12:07)
[2016-07-25 12:14] VITALS: BMI 31.2
[2016-07-25 12:16] LABS: Glucose,Whole Blood 54 mg/dL (75-99)
[2016-07-25 12:52] LABS: Glucose,Whole Blood 263 mg/dL (75-99)
[2016-07-25 13:41] VITALS: BP 106/60; PULSE 65; RESP 16; TEMP 98
== END 2016-07-25 16:31 | DRG 65 ==
LOC: EC 08:43 → 6SEL 09:48
PROVIDERS: ADMIT Internal Medicine; ATTEND Internal Medicine
DX: I63.9 Cerebral infarction, unspecified (principal); I69.354 Hemiplegia and hemiparesis following cerebral infarction affecting left non-dominant side; G91.9 Hydrocephalus, unspecified; E11.65 Type 2 diabetes mellitus with hyperglycemia; I10 Essential (primary) hypertension; R47.01 Aphasia; R13.10 Dysphagia, unspecified; E78.2 Mixed hyperlipidemia; F17.200 Nicotine dependence, unspecified, uncomplicated; F41.9 Anxiety disorder, unspecified; K21.9 Gastro-esophageal reflux disease without esophagitis; R25.1 Tremor, unspecified; F32.9 Major depressive disorder, single episode, unspecified; Z79.4 Long term (current) use of insulin; Z79.82 Long term (current) use of aspirin; Z79.02 Long term (current) use of antithrombotics/antiplatelets; Z79.899 Other long term (current) drug therapy; Z98.2 Presence of cerebrospinal fluid drainage device; Z82.49 Family history of ischemic heart disease and other diseases of the circulatory system
CPT/HCPCS: 36415; 70450; 71020; 74230; 80053; 80061; 81003; 82009; 82550; 82553; 83036; 83090; 83735; 84100; 84484; 85025; 85610; 85730; 87086; 90686; 90732; 93005; 93306; 93880; 94760; 95819; 96361; 96374; 96375; 99285

== ENCOUNTER → 2016-08-08 | Outpatient (CLI) | payer MEDICARE, OTHER ==
--- NOTE | 2016-08-08 12:22 | FL ---
EXAMINATION TYPE: FL barium swallow w video DATE OF EXAM: 08/08/2016 12:04 PM MODIFIED SWALLOW / DEGLUTITION STUDY CLINICAL HISTORY: Dysphagia. History of recent stroke. TECHNIQUE: Deglutition study is performed utilizing thin liquid barium, honey and nectar thick liqui d barium, barium thick applesauce, and barium coated cracker. A total of 3 minutes 15 seconds of fluo roscopic time was utilized during procedure. COMPARISON: Prior swallow study report July 20, 2016 FINDINGS: The oral and pharyngeal phases show some premature spilling all modalities tested. Suboptim al mastication is seen with solid modalities tested as patient has lack of dentition. There is occas ional transient penetration with thin liquid barium which rapidly clears and is present with chin tuc k procedure. No aspiration with any modality tested is identified. Mild to moderate pharyngeal residu e was appreciated. Note is made of partial visualization of anterior fusion plate in the mid to lower cervical spine as well as posterior ASSET ANALYST shunt catheter. IMPRESSION: Transient penetration with thin liquid barium. No aspiration is evident. Please refer to speech therapist notes for further details if necessary.
== END | disposition home or self-care (01) ==
LOC: RADFLMAIN 11:32
PROVIDERS: ATTEND Internal Medicine
DX: R13.10 Dysphagia, unspecified (principal)
CPT/HCPCS: 74230

== ENCOUNTER → 2016-09-07 | Outpatient (CLI) | payer MEDICARE, OTHER ==
--- NOTE | 2016-09-07 15:30 | NM ---
EXAMINATION TYPE: NM DatScan Brain SPECT DATE OF EXAM: 09/07/2016 3:18 PM COMPARISON: NONE HISTORY: Dementia, Parkinsonian syndrome TECHNIQUE: 10 drops of Lugol's solution was administered 1 hour prior to injection as a thyroid bloc taz agent. After the administration of 4.32 mCi I-123 Ioflupane DaTscan. Images obtained 3.25 hour s post injection. SPECT images of the brain were acquired with axial and coronal reconstructions. FINDINGS: The axial SPECT images demonstrate normal background activity. Accounting for head tilt, t here appears to be slight asymmetrically blunted comma-shaped appearance of the left corpus striatum. IMPRESSION: History provided is of both Parkinson's and dementia. 1. Slightly blunted striatal activity on the right may indicate early changes of idiopathic Parkinson 's disease or Parkinsonian syndrome. If the concern is for dementia or memory loss the findings would be more suggestive of generalized dementia or Lewy body dementia rather than Alzheimer's dementia.
== END | disposition home or self-care (01) ==
LOC: RADNMMAIN 10:16
PROVIDERS: ATTEND Psychiatry & Neurology Neurology
DX: G20 Parkinson's disease (principal)
CPT/HCPCS: 78607; A9584

== ENCOUNTER → 2016-11-03 | Outpatient (CLI) | payer MEDICARE ==
--- NOTE | 2016-11-03 11:41 | XR ---
EXAMINATION TYPE: XR shoulder complete LT DATE OF EXAM: 11/03/2016 11:35 AM COMPARISON: NONE HISTORY: Pain TECHNIQUE: Three views are submitted. FINDINGS: The osseous structures are intact. There is no acute fracture or dislocation. The AC joint is mildl y narrowed. Surgical change in the cervical spine.. IMPRESSION: 1. No acute process. Mild arthropathy AC joint.
== END | disposition home or self-care (01) ==
LOC: RADXRMAIN 11:04
PROVIDERS: ATTEND Psychiatry & Neurology Neurology
DX: M12.812 Other specific arthropathies, not elsewhere classified, left shoulder (principal)

== ENCOUNTER → 2016-11-24 | Outpatient (CLI) | payer MEDICARE, OTHER ==
--- NOTE | 2016-11-24 11:40 | FL ---
Modified barium swallow. HISTORY: Dysphagia. Modified barium swallow was performed with the department of speech pathology. The patient was prese nted with various consistencies of barium. There is no evidence for aspiration or penetration. Full report is to follow from the department of speech pathology. Impression: no evidence for aspiration or penetration.
== END | disposition home or self-care (01) ==
LOC: RADFLMAIN 11:03
PROVIDERS: ATTEND Family Medicine
DX: R13.10 Dysphagia, unspecified (principal); I63.9 Cerebral infarction, unspecified
CPT/HCPCS: 74230

== ENCOUNTER 2017-07-07 10:55 | Emergency (ER) | payer MEDICARE, OTHER ==
[2017-07-07 11:05] VITALS: RESP 16
[2017-07-07] MEDS ORDERED: SODIUM CHLORIDE 0.9% 1,000 ML IV STA (11:06)
[2017-07-07] MEDS ORDERED: RX INFO: IV CONTRAST WAS GIVEN 1 EACH MISC MISCELLANE PRN (11:06)
[2017-07-07 11:07] LABS: Glucose,Whole Blood 92 mg/dL (75-99)
--- NOTE | 2017-07-07 11:10 | ED ---
Neuro HPI - General Chief Complaint: Neuro Symptoms/Deficit Stated Complaint: TIA Symptoms Time Seen by Provider: 07/07/17 11:00 Source: patient, family, RN notes reviewed Mode of arrival: wheelchair Limitations: no limitations - History of Present Illness Is the patient presenting with stroke symptoms?: Yes Initial Comments: This is a 7-year-old female history of 3 prior strokes last one being in July of this past year who apparently has had cold her speech for last 2 days but around 9 AM was noted have some visual field problems in the left side also her daughter states she has more left facial droop than usual. No headaches fevers chills nausea vomiting sweats she was having difficulty ambulating this morning. Patient is a smoker persists in smoking. She was seen by her doctor today and sent here for further evaluation. - Related Data Home Medications: Home Medications Medication Instructions Recorded Confirmed ARIPiprazole [Abilify] 2 mg PO HS 12/13/15 07/18/16 Ergocalciferol [Vitamin D2 50,000 unit PO TH 12/13/15 07/18/16 (DRISDOL)] FLUoxetine HCL [PROzac] 60 mg PO DAILY 12/13/15 07/18/16 Omeprazole [PriLOSEC] 20 mg PO AC-BRKFST 12/13/15 07/18/16 Primidone [Mysoline] 50 mg PO TID 12/13/15 07/18/16 lamoTRIgine [LaMICtal] 150 mg PO BID 12/13/15 07/18/16 metFORMIN HCL [Glucophage] 850 mg PO BID 12/13/15 07/18/16 Atenolol 25 mg PO QAM 07/18/16 07/18/16 Lisinopril-Hctz 20-12.5 mg 1 tab PO DAILY 07/18/16 07/18/16 [Zestoretic 20-12.5] Previous Rx's Medication Instructions Recorded Atorvastatin [Lipitor] 80 mg PO DAILY #30 tab 12/17/15 Clopidogrel [Plavix] 75 mg PO DAILY #30 tab 04/22/16 Fenofibrate [Lofibra] 160 mg PO DAILY tab 07/25/16 HYDROcodone/APAP 5-325MG [Chase 1 tab PO Q6HR PRN #30 tab 07/25/16 5-325] INSULIN LISPRO (humaLOG) [humaLOG] 5 unit SQ ACHS vial 07/25/16 Insulin Glargine [Lantus] 30 unit SQ HS vial 07/25/16 LORazepam [Ativan] 0.5 mg PO HS #20 tab 07/25/16 Allergies/Adverse Reactions: Allergies Allergy/AdvReac Type Severity Reaction Status Date / Time No Known Allergies Allergy Verified 07/07/17 11:30 Review of Systems ROS Statement: Those systems with pertinent positive or pertinent negative responses have been documented in the HPI. ROS Other: All systems not noted in ROS Statement are negative. General Exam - General Exam Comments Initial Comments: This is a well-developed well-nourished awake alert oriented 3 female Limitations: no limitations General appearance: alert, anxious Head exam: Present: atraumatic, normocephalic, normal inspection Eye exam: Present: normal appearance, PERRL, EOMI. Absent: scleral icterus, conjunctival injection, periorbital swelling ENT exam: Present: other (Left facial asymmetry is noted with respect to the right side. Forehead is involved) Neck exam: Present: normal inspection, full ROM, other (No stridor JVD or bruits ). Absent: tenderness, meningismus, lymphadenopathy Respiratory exam: Present: normal lung sounds bilaterally. Absent: respiratory distress, wheezes, rales, rhonchi, stridor Cardiovascular Exam: Present: regular rate, normal rhythm, normal heart sounds. Absent: systolic murmur, diastolic murmur, rubs, gallop, clicks GI/Abdominal exam: Present: soft, normal bowel sounds. Absent: distended, tenderness, guarding, rebound, rigid Extremities exam: Present: normal inspection, full ROM, normal capillary refill. Absent: tenderness, pedal edema, joint swelling, calf tenderness Back exam: Present: normal inspection Neurological exam: Present: alert, oriented X3, CN II-XII intact Psychiatric exam: Present: normal affect, normal mood Skin exam: Present: warm, dry, intact, normal color. Absent: rash Stroke MDM - Lab Data Lab Results 07/07/17 Range/Units 11:04 POC Glucose (mg/dL) 92 (75-99) mg/dL POC Glu Back Maker ID Agusto Freemaninn - NIH Stroke Scale 1a. Level of Consciousness: (0) alert 1b. LOC Questions: (0) answers correctly 1c. LOC Commands: (0) performs tasks correctly 2. Best Gaze: (0) normal 3. Visual: (0) no visual loss 4. Facial Palsy: (2) partial paralysis 5a. Motor Arm Left: (0) no drift 5b. Motor Arm Right: (0) no drift 6a. Motor Leg Left: (0) no drift 6b. Motor Leg Right: (0) no drift 7. Limb Ataxia: (0) absent 8. Sensory: (0) normal 10. Dysarthria: (1) mild/moderate dysarthria 11. Extinction/Inattention: (0) no abnormality - Thrombolytic Inclusion/Exclusion Thrombolytic Inclusion Criteria: Ischemic Stroke Onset< 3h, NIH Stroke Scale Deficit, Negative CT Scan for ICH, Age 18 or Older, Glucose of 50-400mg/dl - Medical Decision Making The patient received TPA will be sent to [place] as per request of Dr. Singletary. I did discuss the case with the emergency room physician Dr. Rosales in case the patient does end up in the emergency department as opposed to the neuro ICU. I did discuss the case with the patient and patient's daughter. - EKG Data -: EKG Interpreted by Me EKG shows normal: sinus rhythm (Normal sinus rhythm a 71 appear interval 156 QRS duration 72 QT since QTC of 400/434 ct wave changes) Past Medical History Past Medical History: Chest Pain / Angina, CVA/TIA, Diabetes Mellitus, GERD/ Reflux, Hyperlipidemia, Hypertension Additional Past Medical History / Comment(s): CVA's x 2 with speech/swallow difficulties and R sided weakness, IDDM type II, hydrocephalus and had shunt placed 1999 at [facility]. History of Any Multi-Drug Resistant Organisms: None Reported Past Surgical History: Adenoidectomy, Cholecystectomy, Tonsillectomy Additional Past Surgical History / Comment(s): 1999 hydrochephalus shunt, cervical surgery. Past Anesthesia/Blood Transfusion Reactions: No Reported Reaction Past Psychological History: Anxiety, Bipolar, Depression Smoking Status: Current every day smoker Past Alcohol Use History: Occasional Past Drug Use History: None Reported - Past Family History Mother Family Medical History: Diabetes Mellitus, Myocardial Infarction (HI) Father Family Medical History: Liver Disease, Myocardial Infarction (HI) Course Vital Signs 07/07/17 11:02 Temperature 97.6 F Pulse Rate 68 Respiratory 16 Rate Blood Pressure 151/68 O2 Sat by Pulse 96 Oximetry - Reevaluation(s) Reevaluation #1: 07/07/17 11:52 Reevaluation patient reveals no change in her initial presentation did not have any visual field defect upon initial evaluation facial droop continues it appears the border between an NIH stroke scale of 1 and 2. Patient still demonstrated slurred speech patient Reevaluation #2: 07/07/17 11:55 I did initially discuss the need for smoking cessation with the patient. Critical Care Time Critical Care Time: Yes Critical Care Time: 33 minutes of critical care time which includes initial presentation with history physical labs x-rays several reevaluation of the patient discussed with the patient regarding the findings discussed with patient's daughter discussion with the physician at [facility] discussion with paramedics. Documentation of the above. Disposition Clinical Impression: Cerebrovascular accident Disposition: OTHER INSTITUTION NOT DEFINED Condition: Stable Referrals: Lena Sequeira MD [Primary Care Provider] - 1-2 days - Out of Hospital Transfer - Req. Specs Out of Hospital Transfer - Requested Specifics: Neurological ICU
[2017-07-07] MEDS ORDERED: ALTEPLASE 70 MG in EMPTY BAG 1 BAG IV STA (11:24)
[2017-07-07] MEDS ORDERED: ALTEPLASE BOLUS 8 MG in EMPTY SYRINGE 1 SYR IV STA (11:24)
[2017-07-07] MEDS ORDERED: tPA (Alteplase) PER PHARMACY 1 EACH MISC MISCELLANE PRN (11:27)
--- NOTE | 2017-07-07 11:31 | CT ---
EXAMINATION TYPE: CT brain wo con for TPA DATE OF EXAM: 07/07/2017 HISTORY: Slurred speech, visual disturbance CT DLP: 1088 mGycm. Automated Exposure Control for Dose Reduction was Utilized. TECHNIQUE: CT scan of the head is performed without contrast. COMPARISON: CT brain July 18, 2016. FINDINGS: There is no acute intracranial hemorrhage or midline shift identified. Ventricles and sul ci are felt within normal limits in size. There is some low-attenuation in the periventricular white matter consistent most likely on basis of chronic small vessel ischemic change. Focal area left rossy nal radiata as noted on axial image 28 unchanged from prior. There is persistent right parietal olegario hole with [employer] shunt catheter terminating at right suprasellar levels. Ventricular size is felt stable from prior. There is persistent mild/moderate mucosal thickening involving left ethmoid sinuses impro alex from prior. There is right orbital preseptal 2 mm hyperdense foreign body on axial image 9 unch anged from prior. Patchy soft tissue density left extra auditory canals felt to reflect cerumen is un changed from prior. IMPRESSION: No acute intracranial hemorrhage or midline shift. No hydrocephalus. Ventricular size is stable from prior with stable right-sided [employer] shunt catheter noted. Mild nonspecific white matter kenny nges most likely on basis of product of chronic small vessel ischemic change in patient this age are felt stable. No significant change from prior CT.
[2017-07-07 12:02] LABS: Basophils # (A) 0.1 k/uL (0-0.2); Basophils % (A) 1 %; Eosinophils # (A) 0.1 k/uL (0-0.7); Eosinophils % (A) 2 %; HCT 40.8 % (34.0-46.0); HGB 12.9 gm/dL (11.4-16.0); Lymphocytes # (A) 2.7 k/uL (1.0-4.8); Lymphocytes % (A) 40 %; MCH 29.4 pg (25.0-35.0); MCHC 31.6 g/dL (31.0-37.0); MCV 92.9 fL (80.0-100.0); Mean Platelet Volume 7.7; Monocytes # (A) 0.5 k/uL (0-1.0); Monocytes % (A) 8 %; Neutrophils # (A) 3.2 k/uL (1.3-7.7); Neutrophils % (A) 47 %; Platelet Count 282 k/uL (150-450); RBC 4.39 m/uL (3.80-5.40); RDW 13.2 % (11.5-15.5); WBC 6.8 k/uL (3.8-10.6)
--- NOTE | 2017-07-07 12:05 | CT ---
EXAMINATION TYPE: CT angio head neck DATE OF EXAM: 07/07/2017 HISTORY: Slurred speech, visual disturbance. Neural deficits. Code stroke. COMPARISON: Carotid ultrasound July 22, 2016 CT DLP: 371 mGycm. Automated Exposure Control for Do se Reduction was Utilized. TECHNIQUE: CTA scan of the head and neck are performed with IV Contrast, patient injected with 65 mL of Omnipaque 350, axial images are obtained, coronal and sagittal reformatted images are reviewed. T hree-D reconstructed images are created on an independent workstation and reviewed. FINDINGS: Carotid/Vascular Structures: There is mild peripheral plaque in the aortic arch. There is normal thre e-vessel origin from the aortic arch. The visualized right brachiocephalic as well as bilateral subcl demarco arteries show no significant focal stenosis. There is mild peripheral plaque at origin of right brachiocephalic and left subclavian arteries. Right common carotid artery shows normal origin from right brachiocephalic artery. There is moderate mixed plaque at distal right carotid artery extending into carotid bulb without hemodynamically signi ficant stenosis seen in either internal or external carotid artery. Remainder of right internal carot id artery shows no significant plaque or stenosis. There is patent external carotid artery without si gnificant plaque or stenosis. There is slight tortuosity to left common carotid artery without significant plaque or stenosis. Ther e is mild to moderate mixed plaque at left carotid bulb extending into proximal internal and external carotid arteries. There is patent left external carotid artery without significant stenosis. There i s mild calcified plaque at supraclinoid segment distal left internal carotid artery. No significant s tenosis is seen. There is dominant right vertebral artery. Left vertebral artery becomes occluded distally right befor e basilar junction. There are hypoplastic posterior communicating arteries seen bilaterally. There is no aneurysmal change in the posterior circulation. Images in the anterior circulation show small lay ering but patent anterior communicating artery. There is no significant focal stenosis or aneurysmal change seen. Other: There is redemonstration of right parietal BOL[employer] shunt catheter with tip at suprasellar level. Vi sualized portion of shunt catheter is intact in the anterior thoracic chest wall after transversing p osterior right neck. Some low-attenuation periventricular white matter is again seen. Right orbital 3 mm metallic foreign body anteriorly is redemonstrated. There is postsurgical change C4-C6 level in the cervical spine identified. Visualized bilateral lungs show diffuse groundglass opacity suggesting edema and/or infiltrates. Correlate clinically. IMPRESSION: 1. No aneurysmal change at level of the [place]. 2. No hemodynamically significant stenosis is seen in either common or internal carotid artery. Mild to moderate plaque at bilateral carotid bulbs correlates with prior carotid ultrasound.
[2017-07-07 12:11] LABS: Albumin 3.7 g/dL (3.5-5.0); Calcium 9.5 mg/dL (8.4-10.2); Potassium 4.4 mmol/L (3.5-5.1); Total Bilirubin 0.4 mg/dL (0.2-1.3); Total Protein 6.3 g/dL (6.3-8.2)
[2017-07-07 12:22] LABS: Creatine Kinase 60 U/L (30-135)
[2017-07-07 12:35] LABS: Creatine Kinase MB 0.7 ng/mL (0.0-2.4); Troponin I <0.012 ng/mL (0.000-0.034)
[2017-07-07 12:39] LABS: INR 1.5 (<1.2); Partial Thromboplastin Time 24.8 sec (22.0-30.0); Prothrombin Time 13.8 sec (9.0-12.0)
--- NOTE | 2017-07-07 13:15 | XR ---
EXAMINATION TYPE: XR chest 2V DATE OF EXAM: 07/07/2017 COMPARISON: 07/21/2016 TECHNIQUE: PA and lateral views submitted. HISTORY: Left-sided weakness FINDINGS: The lungs are clear and there is no pneumothorax, pleural effusion, or focal pneumonia. Arthropathy of the shoulders. Postsurgical change overlying the cervical spine. Degenerative change of the spine . Arthropathy of the shoulders. IMPRESSION: 1. No acute process.
[2017-07-07 14:18] VITALS: BP 131/63; PULSE 69; TEMP 97.8
== END 2017-07-07 13:06 | disposition short-term general hospital (02) ==
LOC: EC 10:55
DX: I63.9 Cerebral infarction, unspecified (principal); E11.9 Type 2 diabetes mellitus without complications; I10 Essential (primary) hypertension; F31.9 Bipolar disorder, unspecified; K21.9 Gastro-esophageal reflux disease without esophagitis; F17.200 Nicotine dependence, unspecified, uncomplicated; Z79.84 Long term (current) use of oral hypoglycemic drugs; Z79.899 Other long term (current) drug therapy
CPT/HCPCS: 96360 ×2; 96361 ×2; 99291 ×2; 37195 ×2; 36415; 93005; 80053; 82550; 82553; 84484; 85025; 85610; 85730; 71046; 70496; 70450; 70498; J2997; Q9967

== ENCOUNTER → 2017-10-23 | Outpatient (CLI) | payer MEDICARE, OTHER ==
[2017-10-23 11:46] LABS: HCT 43.6 % (34.0-46.0); HGB 14.6 gm/dL (11.4-16.0); MCH 29.5 pg (25.0-35.0); MCHC 33.4 g/dL (31.0-37.0); MCV 88.2 fL (80.0-100.0); Mean Platelet Volume 7.8; Platelet Count 266 k/uL (150-450); RBC 4.94 m/uL (3.80-5.40); RDW 13.8 % (11.5-15.5); WBC 6.9 k/uL (3.8-10.6)
[2017-10-23 12:18] LABS: Albumin 4.1 g/dL (3.5-5.0); Calcium 10.2 mg/dL (8.4-10.2); Potassium 4.4 mmol/L (3.5-5.1); Total Bilirubin 0.3 mg/dL (0.2-1.3); Total Protein 6.7 g/dL (6.3-8.2)
[2017-10-23 12:35] LABS: T4, Free (Free Thyroxine) 0.93 ng/dL (0.78-2.19)
[2017-10-23 21:57] LABS: Hemoglobin A1C 6.1 % (4.0-6.0)
== END | disposition home or self-care (01) ==
LOC: LABWHC1 11:00
PROVIDERS: ATTEND Psychiatry & Neurology Pain Medicine
DX: R53.83 Other fatigue (principal)
CPT/HCPCS: 36415; 80053; 82550; 82607; 83036; 83540; 84439; 84443; 84481; 85027

== ENCOUNTER → 2019-06-05 | Outpatient (CLI) | payer MEDICARE, OTHER ==
--- NOTE | 2019-06-06 09:56 | XR ---
EXAMINATION TYPE: XR skull complete DATE OF EXAM: 06/05/2019 COMPARISON: CT topogram 07/07/2017 HISTORY: Shunt placement TECHNIQUE: 2 views submitted FINDINGS: There is a right-sided shunt seen with tubing extending along the soft tissues of the right neck up along the right parietal bone with a suspected olegario hole in the right lateral parietal bone. The catheter then extends diagonally and caudally overlying the central margin of the sphenoid sinus on the frontal view and just above the level of the level of the sella turcica on the lateral view i s similar to the topogram of the head CT performed as discussed above IMPRESSION: 1. Stable appearance of the shunt catheter with the tip overlying the suprasellar region and should b e correlated for positioning.
== END | disposition home or self-care (01) ==
LOC: RADMRIMAIN 18:39
PROVIDERS: ATTEND Neurological Surgery
DX: Z98.2 Presence of cerebrospinal fluid drainage device (principal)
CPT/HCPCS: 70260

== ENCOUNTER → 2020-03-06 | Outpatient (CLI) | payer MEDICARE, OTHER ==
--- NOTE | 2020-03-09 08:03 | CT ---
EXAMINATION TYPE: CT brain wo con DATE OF EXAM: 03/06/2020 COMPARISON: 07/07/2017 HISTORY: 64-year-old female presents for CSF drainage device, 1080.1 TECHNIQUE: Examination was done in axial plane without intravenous contrast. Coronal and sagittal r econstructions performed. CT DLP: 1080.1 mGycm Automated exposure control for dose reduction was used. FINDINGS: There is no evidence of acute intracranial hemorrhage, acute ischemic changes, mass, mass-effect, or extra-axial fluid collection. There is no effacement of cerebral sulci or basal subarachnoid cister ns. There is no hydrocephalus. There is no midline shift. Guzman-white matter distinction is preserv ed. Some scattered atherosclerotic calcifications in the carotid siphons. There is a right parietal approach NEURORADIOLOGIST shunt catheter. Catheter tip extends anteriorly to the midline and terminates in the suprasellar cistern. There seems to be chronic healed fracture deformities of the bilateral mandibular condylar necks pseu doarticular arthrosis. Rightward nasal septal deviation. Some trace mucosal thickening ethmoid air cells. Mastoid air cells are well pneumatized. Orbits and globes appear intact. IMPRESSION: 1. Right-sided NEURORADIOLOGIST shunt catheter. Catheter tip extends anteriorly to the midline terminating in the s uprasellar cistern, unchanged from 07/07/2017. Ventricular size is normal, also unchanged from 2018. 2. No acute intracranial abnormality seen. 3. 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
== END | disposition home or self-care (01) ==
LOC: RADCTMAIN 17:02
PROVIDERS: ATTEND Neurological Surgery
DX: Z48.811 Encounter for surgical aftercare following surgery on the nervous system (principal); Z98.2 Presence of cerebrospinal fluid drainage device
CPT/HCPCS: 70450